=== PATIENT | male | born 1980 | race Caucasian/White ===

== ENCOUNTER 2023-01-24 20:58 | Inpatient (IN) | payer OTHER ==
[2023-01-24] MEDS ORDERED: SODIUM CHLORIDE 0.9% 1,000 ML IV STA (21:06)
[2023-01-24] MEDS ORDERED: SODIUM CHLORIDE 0.9% 500 ML 500 ML IV STA (21:06)
[2023-01-24] MEDS ORDERED: LORazepam 2 MG/ML INJ IV STA (21:06)
--- NOTE | 2023-01-24 21:08 | ED ---
Seizure HPI <Holly Orlando - Last Filed: 01/25/23 04:28> - General Source: EMS, RN notes reviewed, old records reviewed Mode of arrival: EMS Limitations: no limitations - History of Present Illness MD Complaint: seizure, shaking -: minutes(s) Description of Episode: loss of consciousness, tonic-clonic movement -: minutes(s) Witnessed: yes - by bystander, yes - by EMS Trauma: Yes Seizure History: history of withdrawal seizures Place: other ([place]) Possible Precipitating Event: none Associated Symptoms: denies other symptoms Treatments Prior to Arrival: none <Bobby Coleman - Last Filed: 01/25/23 15:02> - General Chief Complaint: Seizure Stated Complaint: Seizure Time Seen by Provider: 01/24/23 21:05 - History of Present Illness Initial Comments: This is a 42-year-old male to the emergency department for evaluation. Patient presents by EMS from [place] for evaluation of seizure. Patient has seizure prior to arrival today history of alcohol withdrawal and alcohol withdrawal seizures. Patient still feels very shaky lightheaded and dizzy does not feel well. Patient is on seizure control at home. (Bobby Coleman) - Related Data Home Medications Medication Instructions Recorded Confirmed LORazepam [Ativan] 1 - 2 mg PO Q4H PRN 01/24/23 01/24/23 Allergies Allergy/AdvReac Type Severity Reaction Status Date / Time No Known Allergies Allergy Verified 01/24/23 22:14 Review of Systems ROS Other: All systems not noted in ROS Statement are negative. <Holly Orlando - Last Filed: 01/25/23 04:28> ROS Other: All systems not noted in ROS Statement are negative. <Bobby Coleman - Last Filed: 01/25/23 15:02> ROS Statement: Those systems with pertinent positive or pertinent negative responses have been documented in the HPI. Past Medical History Past Medical History: Seizure Disorder History of Any Multi-Drug Resistant Organisms: None Reported Past Surgical History: No Surgical Hx Reported Past Psychological History: No Psychological Hx Reported Smoking Status: Current every day smoker Past Alcohol Use History: Heavy Past Drug Use History: None Reported - Past Family History Father Family Medical History: COPD <Bobby Coleman - Last Filed: 01/25/23 15:02> General Exam Limitations: altered mental status, physical limitation General appearance: anxious Head exam: Present: atraumatic, normocephalic, normal inspection Eye exam: Present: normal appearance, PERRL, EOMI. Absent: scleral icterus, conjunctival injection, periorbital swelling ENT exam: Present: normal exam, mucous membranes moist Neck exam: Present: normal inspection. Absent: tenderness, meningismus, lymphadenopathy Respiratory exam: Present: normal lung sounds bilaterally. Absent: respiratory distress, wheezes, rales, rhonchi, stridor Cardiovascular Exam: Present: normal rhythm, tachycardia, normal heart sounds. Absent: systolic murmur, diastolic murmur, rubs, gallop, clicks GI/Abdominal exam: Present: soft, normal bowel sounds. Absent: distended, tenderness, guarding, rebound, rigid Extremities exam: Present: normal inspection, full ROM, normal capillary refill. Absent: tenderness, pedal edema, joint swelling, calf tenderness Back exam: Present: normal inspection Neurological exam: Present: alert, oriented X3, CN II-XII intact Psychiatric exam: Present: normal affect, normal mood Skin exam: Present: warm, dry, intact, normal color. Absent: rash <Bobby Coleman - Last Filed: 01/25/23 15:02> Course <Bobby Coleman - Last Filed: 01/25/23 15:02> Vital Signs 01/24/23 01/24/23 01/25/23 20:59 22:39 02:00 Temperature 99.2 F Pulse Rate 123 H 89 89 Respiratory 18 20 16 Rate Blood Pressure 146/82 128/79 134/67 O2 Sat by Pulse 97 97 99 Oximetry 01/25/23 01/25/23 01/25/23 03:46 06:36 07:21 Temperature Pulse Rate 90 88 74 Respiratory 16 22 20 Rate Blood Pressure 134/77 129/67 123/77 O2 Sat by Pulse 97 98 Oximetry 01/25/23 01/25/23 11:20 13:09 Temperature Pulse Rate 73 105 H Respiratory 20 18 Rate Blood Pressure 131/75 127/77 O2 Sat by Pulse Oximetry - Reevaluation(s) Reevaluation #1: Medical records reviewed (Bobby Coleman) Reevaluation #2: Patient has no recurrent seizure here in the ER (Bobby Coleman) Reevaluation #3: Patient informed results questions answered (Bobby Coleman) Reevaluation #4: 01/24/23 21:08 Was pt. sent in by a medical professional or institution? @ -no Did you speak to anyone other than the patient for history? @ -no Did you review nursing and triage notes? @ -agree Were old charts reviewed? @ -no Differential Diagnosis? @ -prior EKG interpreted by me (3pts min.)? @ -yes X-rays interpreted by me (1pt min.)? @ -no CT interpreted by me (1pt min.)? @ -no U/S interpreted by me (1pt. min.)? @ -no What testing was considered but not performed? (CT, X-rays, U/S, labs)? Why? @ -no What meds were considered but not given? Why? @ -no Did you discuss the management of the patient with other professionals? @ -no Did you reconcile home meds? @ -no Was smoking cessation discussed for >3mins.? @ -no Was critical care preformed (if so, how long)? @ -no Were there social determinants of health that impacted care today? How? (Homelessness, low income, unemployed, alcoholism, drug addiction, transportati on, low edu. Level, literacy, decrease access to med. care, senior care, rehab)? @ -no Was there de-escalation of care discussed even if they declined? (Discuss DNR or withdrawal of care, Hospice)? @ -no What co-morbidities impacted this encounter? (DM, HTN, Smoking, COPD, CAD, Cancer, CVA, Hep., AIDS, mental health diagnosis, sleep apnea, morbid obesity)? @ -none Was patient admitted / discharged? @ -42 male to the emergency department for evaluation regarding seizure, this is recurrent seizure for the patient on seizure medication secondary to alcohol withdrawal seizures. Patient will be admitted for monitoring to watch for impending DTs Discharged Undiagnosed new problem with uncertain prognosis? @ -no Drug Therapy requiring intensive monitoring for toxicity (Heparin, Nitro, Insulin, Cardizem)? @ -no Were any procedures done? @ -no Diagnosis/symptom? @ -Alcohol withdrawal seizures, impending DTs Acute, or Chronic, or Acute on Chronic? @ -no Uncomplicated (without systemic symptoms) or Complicated (systemic symptoms)? @ -uncomplicated Side effects of treatment? @ -no Exacerbation, Progression, or Severe Exacerbation] @ -no Poses a threat to life or bodily function? @ -yes with impending alcohol withdrawal (Bobby Coleman) Reevaluation #5: 01/24/23 21:08 Differential Seizure: Recurrent seizure disorder, febrile seizure, alcohol withdrawal, stimulants, meningitis, encephalitis, intercranial hemorrhage, intracranial tumor, stroke, eclampsia, thyrotoxicosis, hypocalcemia, hyponatremia, hypernatremia, hypom agnesemia, psychogenic, this is not meant to be an all-inclusive list. (Bobby Coleman) - Consultations Consultation #1: Spoke with sound who agrees to admit the patient (Bobby Coleman) Procedures - Laceration Laceration #1 Consent Obtained: verbal consent Indication: laceration Site: other (right elbow) Size (cm): 3 Description: linear Depth: simple, single layer Anesthetic Used: lidocaine 1% Anesthesia Technique: local infiltration Amount (mls): 5 Pre-repair: irrigated extensively Type of Sutures: nylon Size of Sutures: 4-0 Number of Sutures: 3 Technique: simple, interrupted Patient Tolerated Procedure: well, no complications <Holly Orlando - Last Filed: 01/25/23 04:28> Medical Decision Making - Lab Data Result diagrams: 01/24/23 21:07 01/24/23 21:10 <Holly Orlando - Last Filed: 01/25/23 04:28> - Lab Data Result diagrams: 01/25/23 06:03 01/25/23 06:03 - EKG Data -: EKG Interpreted by Me (EKG is tachycardia 114 WA 193 QRS 101 QTC 391) <Bobby Coleman - Last Filed: 01/25/23 15:02> - Medical Decision Making 42 male to the emergency department today with alcohol withdrawal seizure a she will be admitted for impending DTs. No recurrent seizure here in the ER. Patient is not on any seizure medication (Bobby Coleman) - Lab Data Lab Results 01/24/23 01/24/23 01/24/23 Range/Units 21:07 21:10 21:10 WBC 7.2 (3.8-10.6) k/uL RBC 4.40 (4.30-5.90) m/uL Hgb 13.7 (13.0-17.5) gm/dL Hct 42.3 (39.0-53.0) % MCV 96.3 (80.0-100.0) fL MCH 31.3 (25.0-35.0) pg MCHC 32.5 (31.0-37.0) g/dL RDW 14.7 (11.5-15.5) % Plt Count 92 L (150-450) k/uL MPV 9.6 Neutrophils % 76 % Lymphocytes % 14 % Monocytes % 8 % Eosinophils % 1 % Basophils % 0 % Neutrophils # 5.4 (1.3-7.7) k/uL Lymphocytes # 1.0 (1.0-4.8) k/uL Monocytes # 0.5 (0-1.0) k/uL Eosinophils # 0.1 (0-0.7) k/uL Basophils # 0.0 (0-0.2) k/uL Large Platelets Present PT 9.6 (9.0-12.0) sec INR 0.9 (<1.2) Sodium 136 L (137-145) mmol/L Potassium 4.5 (3.5-5.1) mmol/L Chloride 103 (98-107) mmol/L Carbon Dioxide 19 L (22-30) mmol/L Anion Gap 14 mmol/L BUN 11 (9-20) mg/dL Creatinine 0.49 L (0.66-1.25) mg/dL Est GFR (CKD-EPI)AfAm >90 (>60 ml/min/1.73 sqM) Est GFR (CKD-EPI)NonAf >90 (>60 ml/min/1.73 sqM) Glucose 118 H (74-99) mg/dL Calcium 9.3 (8.4-10.2) mg/dL Phosphorus 3.0 (2.5-4.5) mg/dL Magnesium 2.0 (1.6-2.3) mg/dL Total Bilirubin 1.2 (0.2-1.3) mg/dL AST 113 H (17-59) U/L ALT 54 H (4-49) U/L Alkaline Phosphatase 83 (38-126) U/L Total Protein 7.9 (6.3-8.2) g/dL Albumin 4.8 (3.5-5.0) g/dL Lipase 70 (23-300) U/L Serum Alcohol <10 mg/dL Critical Care Time Critical Care Time: Yes Total Critical Care Time: 31 <Bobby Coleman - Last Filed: 01/25/23 15:02> Disposition <Holly Orlando - Last Filed: 01/25/23 04:28> Is patient prescribed a controlled substance at d/c from ED?: No Time of Disposition: 22:45 <Bobby Coleman - Last Filed: 01/25/23 15:02> Clinical Impression: Generalized seizure, Alcohol withdrawal, Delirium tremens, Recurrent seizures, Alcohol abuse Disposition: ADMITTED IP TO THIS HOSP Condition: Serious
[2023-01-24 21:36] LABS: Basophils % (A) 0 %; Eosinophils # (A) 0.1 k/uL (0-0.7); Eosinophils % (A) 1 %; HCT 42.3 % (39.0-53.0); HGB 13.7 gm/dL (13.0-17.5); Lymphocytes % (A) 14 %; MCH 31.3 pg (25.0-35.0); MCHC 32.5 g/dL (31.0-37.0); MCV 96.3 fL (80.0-100.0); Mean Platelet Volume 9.6; Monocytes # (A) 0.5 k/uL (0-1.0); Monocytes % (A) 8 %; Neutrophils # (A) 5.4 k/uL (1.3-7.7); Neutrophils % (A) 76 %; Platelet Count 92 k/uL (150-450); RDW 14.7 % (11.5-15.5); WBC 7.2 k/uL (3.8-10.6)
[2023-01-24 21:43] LABS: INR 0.9 (<1.2); Prothrombin Time 9.6 sec (9.0-12.0)
[2023-01-24 21:51] LABS: ALT 54 U/L (4-49); African American GFR (CKD) >90 (>60 ml/min/1.73 sqM); Albumin 4.8 g/dL (3.5-5.0); Alcohol <10 mg/dL; Anion Gap 14 mmol/L; Blood Urea Nitrogen 11 mg/dL (9-20); Calcium 9.3 mg/dL (8.4-10.2); Carbon Dioxide 19 mmol/L (22-30); Chloride 103 mmol/L (98-107); Glucose 118 mg/dL (74-99); Lipase 70 U/L (23-300); Non-African American GFR(CKD) >90 (>60 ml/min/1.73 sqM); Sodium 136 mmol/L (137-145); Total Protein 7.9 g/dL (6.3-8.2)
[2023-01-24 21:53] LABS: AST 113 U/L (17-59); Alkaline Phosphatase 83 U/L (38-126); Potassium 4.5 mmol/L (3.5-5.1); Total Bilirubin 1.2 mg/dL (0.2-1.3)
[2023-01-24 22:31] LABS: Large Platelets Present
[2023-01-24] MEDS ORDERED: MORPHINE SULFATE 4 MG/ML SYRINGE IV PRN (22:46)
[2023-01-24] MEDS ORDERED: NALOXONE 0.4 MG/ML 1 ML VIAL IV PRN (22:46)
[2023-01-24] MEDS ORDERED: THIAMINE 100 MG/ML 2 ML VIAL IM STA (22:46)
[2023-01-24] MEDS: DEXTROSE 5%-0.45% NACL 1,000 ML IV SCH (23:37)
[2023-01-24] MEDS: LORazepam 2 MG/ML INJ IV PRN (23:37)
[2023-01-24] MEDS: SODIUM CHLORIDE 0.9% 1,000 ML IV SCH (23:42)
--- NOTE | 2023-01-25 00:10 | P.HPIM ---
History of Present Illness H&P Date: 01/24/23 The patient is a 42-year-old male with a PMH of EtOH abuse with history of alcohol withdrawal seizures who presents to the emergency room sent from [place] where the patient had checked it earlier today. Shortly after arrival there, the patient was noted to have 3 grand mal seizures and was subsequently sent to the emergency room. The patient reports that he has a long-standing history of alcohol abuse, has been trying to cut down but continues to drink roughly a 6 pack of beer nightly. States that his last drink was yesterday evening. Does not remember the seizure episodes. Reports feeling shaky at the time of interview. Denies experiencing headache, visual disturbances, nausea, v omiting, diarrhea. Patient reports experiencing right elbow trauma from an accident while at work at his [employer] job yesterday. In the emergency room, EKG revealed sinus tachycardia 114 bpm the urinalysis deviation and an incomplete right bundle branch block with inferior lead Q waves noted. Laboratory evaluation was remarkable for WBC 7.2, platelet count 92, sodium 136, CO2 19, creatinine 0.49, glucose 118, AST 113, ALT 54, serum alcohol level less than 10. ED documentation reviewed and case discussed with ED provider. Review of systems: Pertinent positives and negatives as discussed in HPI, a complete review of systems was performed and all other systems are negative. Physical examination: Vital signs reviewed General: Disheveled male, no distress, appears at stated age, normal weight Derm: Right elbow 4 cm laceration noted, warm Head: atraumatic, normocephalic, symmetric Eyes: EOMI, no lid lag, anicteric sclera, pupils equal round reactive to light ENT: Nose and ears atraumatic Neck: No cervical lymphadenopathy, trachea midline, supple Mouth: no lip lesion, mucus membranes moist Cardiovascular: S1S2 reg, no murmur, positive dorsalis pedis pulse bilateral, no edema Lungs: CTA bilateral, no rhonchi, no rales, no accessory muscle use Abdominal: soft, nontender to palpation, no guarding Ext: muscle strength 5 out of 5 in all 4 extremities grossly, no gross muscle atrophy, no contractures, Neuro: CN II-XI grossly intact, no gross focal neuro deficits, outstretched hand tremor noted Psych: Tremulous, oriented, appropriate affect Assessment: Seizures, suspect secondary to alcohol withdrawal Thrombocytopenia Abnormal LFTs likely due to EtOH abuse Imaging: In the emergency room, EKG revealed sinus tachycardia 114 bpm the urinalysis deviation and an incomplete right bundle branch block with inferior lead Q waves noted. Data Review: Laboratory evaluation was remarkable for WBC 7.2, platelet count 92, sodium 136, CO2 19, creatinine 0.49, glucose 118, AST 113, ALT 54, serum alcohol level less than 10. Plan: CIWA protocol Thiamine, MV IVFs with NS 130 mL/hr Fall precautions DVT prophylaxis: IPCDs The patient is admitted with an anticipated greater than 2 midnight stay for evaluation of seizures CODE STATUS: Full Code Discussed with: Patient Anticipated discharge place: Home Past Medical History Past Medical History: Seizure Disorder History of Any Multi-Drug Resistant Organisms: None Reported Past Surgical History: No Surgical Hx Reported Past Psychological History: No Psychological Hx Reported Smoking Status: Current every day smoker Past Alcohol Use History: Heavy Past Drug Use History: None Reported - Past Family History Father Family Medical History: COPD Medications and Allergies Home Medications Medication Instructions Recorded Confirmed Type LORazepam [Ativan] 1 - 2 mg PO Q4H PRN 01/24/23 01/24/23 History Allergies Allergy/AdvReac Type Severity Reaction Status Date / Time No Known Allergies Allergy Verified 01/24/23 22:14 Physical Exam Vitals: Vital Signs Temp Pulse Resp BP Pulse Ox 01/24/23 22:39 89 20 128/79 97 01/24/23 20:59 99.2 F 123 H 18 146/82 97 Intake and Output 01/24/23 01/24/23 01/25/23 14:59 22:59 06:59 Other: Weight 72.575 kg Results CBC & Chem 7: 01/24/23 21:07 01/24/23 21:10 Labs: Abnormal Lab Results - Last 24 Hours (Table) 01/24/23 01/24/23 Range/Units 21:07 21:10 Plt Count 92 L (150-450) k/uL Sodium 136 L (137-145) mmol/L Carbon Dioxide 19 L (22-30) mmol/L Creatinine 0.49 L (0.66-1.25) mg/dL Glucose 118 H (74-99) mg/dL AST 113 H (17-59) U/L ALT 54 H (4-49) U/L
--- NOTE | 2023-01-25 00:52 | CT ---
EXAM: CT Head Without Intravenous Contrast CLINICAL HISTORY: ITS.REASON CT Reason: s/p 3 seizures TECHNIQUE: Axial computed tomography images of the head/brain without intravenous contrast. CTDI is 45.285 mGy and DLP is 1066.5 mGy-cm. This CT exam was performed using one or more of the following dose reduction techniques: automated exposure control, adjustment of the mA and/or kV according to patient size, and/or use of iterative reconstruction technique. COMPARISON: No previous studies. FINDINGS: Brain: Unremarkable. No hemorrhage. No significant white matter disease. No abnormal extra-axial collection is noted. Midline shift: Midline anatomy is unremarkable. Ventricles: Unremarkable. No ventriculomegaly. Bones/joints: Calvarium is within normal limits. No acute fracture. Soft tissues: Unremarkable. Sinuses: Visualized sinuses are unremarkable. Mastoid air cells: Mastoid air cells are well pneumatized. Other findings: Age-related changes. IMPRESSION: 1. Age-related changes. 2. No acute intracranial pathology. 3. Given the patient's history of seizures, MRI imaging of the brain with contrast administration is advised to follow-up for completeness of seizure workup. EXAM: CT Cervical Spine Without Intravenous Contrast CLINICAL HISTORY: ITS.REASON CT Reason: s/p 3 seizures TECHNIQUE: Axial computed tomography images of the cervical spine without intravenous contrast. CTDI is 11.385 mGy and DLP is 306.4 mGy-cm. This CT exam was performed using one or more of the following dose reduction techniques: automated exposure control, adjustment of the mA and/or kV according to patient size, and/or use of iterative reconstruction technique. COMPARISON: No previous studies. FINDINGS: Vertebrae: Dextroscoliosis. There is straightening and reversal of the curvature of the cervical spine suggestive of muscle spasm. Cervical and visualized thoracic vertebral bodies are maintained in height. There is a normal relationship of C1 and C2. Transaxial images of the cervical spine reveals multilevel posterior facet hypertrophy and disc osteophyte complexes. No acute fracture. Discs/spinal canal/neural foramina: No acute findings. No spinal canal stenosis. Soft tissues: Unremarkable. Lung apices: Minimal scarring at the lung apices. IMPRESSION: No acute injury to the cervical spine is noted.
[2023-01-25] MEDS: LORazepam 2 MG/ML INJ IV PRN ×7 (01:20→18:41)
[2023-01-25] MEDS ORDERED: LIDOCAINE 1% INJ 10MG/ML (30 ML VIAL-PF) SQ ONE (02:53)
[2023-01-25 06:50] LABS: Basophils % (A) 0 %; Eosinophils % (A) 0 %; HCT 40.8 % (39.0-53.0); HGB 13.2 gm/dL (13.0-17.5); Lymphocytes % (A) 12 %; MCH 31.2 pg (25.0-35.0); MCHC 32.3 g/dL (31.0-37.0); MCV 96.7 fL (80.0-100.0); Mean Platelet Volume 9.4; Monocytes # (A) 0.8 k/uL (0-1.0); Monocytes % (A) 9 %; Neutrophils # (A) 6.9 k/uL (1.3-7.7); Neutrophils % (A) 78 %; RBC 4.23 m/uL (4.30-5.90); RDW 14.5 % (11.5-15.5); WBC 8.9 k/uL (3.8-10.6)
[2023-01-25 06:51] LABS: Platelet Count 83 k/uL (150-450)
[2023-01-25] MEDS: SODIUM CHLORIDE 0.9% 1,000 ML IV SCH ×3 (06:51→22:54)
[2023-01-25 07:14] LABS: ALT 49 U/L (4-49); AST 90 U/L (17-59); African American GFR (CKD) >90 (>60 ml/min/1.73 sqM); Albumin 4.2 g/dL (3.5-5.0); Alkaline Phosphatase 61 U/L (38-126); Anion Gap 9 mmol/L; Blood Urea Nitrogen 12 mg/dL (9-20); Calcium 8.7 mg/dL (8.4-10.2); Carbon Dioxide 25 mmol/L (22-30); Chloride 102 mmol/L (98-107); Glucose 127 mg/dL (74-99); Magnesium 2.1 mg/dL (1.6-2.3); Non-African American GFR(CKD) >90 (>60 ml/min/1.73 sqM); Phosphorus 3.6 mg/dL (2.5-4.5); Potassium 3.4 mmol/L (3.5-5.1); Sodium 136 mmol/L (137-145); Total Bilirubin 1.1 mg/dL (0.2-1.3)
[2023-01-25] MEDS: MULTIVITAMINS, THERA 1 EACH TAB PO SCH (08:17)
[2023-01-25] MEDS: THIAMINE 100 MG TAB PO SCH (08:17)
[2023-01-25] MEDS: FOLIC ACID 1 MG TAB PO SCH (08:18)
--- NOTE | 2023-01-25 12:41 | P.PN ---
Subjective Progress Note Date: 01/25/23 No new complaints today. Withdrawal is well controlled. Gen: awake, alert HEENT: normocephalic, atraumatic, good hearing acuity, moist mucous membranes Resp: good air exchange, breathing comfortably with no accessory muscle use CVS: good distal perfusion x 4, GI: soft, NTTP, ND : no SPT, no CVAT, roberts catheter not present MSK: no pitting edema, no clubbing Neuro: non-focal, moving all extremities Psych: cooperative, euthymic mood Hospital course: The patient is a 42-year-old male with a PMH of EtOH abuse with history of alcohol withdrawal seizures who presents to the emergency room sent from [place] where the patient had checked it earlier today. In the emergency room, EKG revealed sinus tachycardia 114 bpm the urinalysis deviation and an incomplete right bundle branch block with inferior lead Q waves noted. Laboratory evaluation was remarkable for WBC 7.2, platelet count 92, sodium 136, CO2 19, creatinine 0.49, glucose 118, AST 113, ALT 54, serum alcohol level less than 10. ED documentation reviewed and case discussed with ED provider. Assessment: Seizures, suspect secondary to alcohol withdrawal Thrombocytopenia Abnormal LFTs likely due to EtOH abuse Plan: Today, patient is afebrile, 131/75, heart rate 73, 93% on room air Ativan 1-2 mg every 1-2 hours when necessary for agitation, restlessness Thiamine, MV, folic acid IVFs with NS 130 mL/hr Fall precautions DVT prophylaxis: IPCDs The patient is admitted with an anticipated greater than 2 midnight stay for e valuation of seizures CODE STATUS: Full Code Discussed with: Patient Anticipated discharge place: Home Objective - Vital Signs Vital signs: Vital Signs Temp 99.2 F 01/24/23 20:59 Pulse 73 01/25/23 11:20 Resp 20 01/25/23 11:20 BP 131/75 01/25/23 11:20 Pulse Ox 98 01/25/23 07:21 FiO2 Intake & Output 01/24/23 01/25/23 01/25/23 18:59 06:59 18:59 Weight 72.575 kg - Labs CBC & Chem 7: 01/25/23 06:03 01/25/23 06:03 Labs: Abnormal Lab Results - Last 24 Hours (Table) 01/24/23 01/24/23 01/25/23 Range/Units 21:07 21:10 06:03 RBC 4.23 L (4.30-5.90) m/uL Plt Count 92 L 83 L (150-450) k/uL Sodium 136 L (137-145) mmol/L Potassium (3.5-5.1) mmol/L Carbon Dioxide 19 L (22-30) mmol/L Creatinine 0.49 L (0.66-1.25) mg/dL Glucose 118 H (74-99) mg/dL AST 113 H (17-59) U/L ALT 54 H (4-49) U/L 01/25/23 Range/Units 06:03 RBC (4.30-5.90) m/uL Plt Count (150-450) k/uL Sodium 136 L (137-145) mmol/L Potassium 3.4 L (3.5-5.1) mmol/L Carbon Dioxide (22-30) mmol/L Creatinine 0.50 L (0.66-1.25) mg/dL Glucose 127 H (74-99) mg/dL AST 90 H (17-59) U/L ALT (4-49) U/L
[2023-01-25] MEDS: NICOTINE 14MG/24HR PATCH TRANSDERM SCH (12:59)
[2023-01-25] MEDS: DEXTROSE 5%-0.45% NACL 1,000 ML IV SCH (13:02)
[2023-01-25 19:23] VITALS: RESP 18
[2023-01-26] MEDS: SODIUM CHLORIDE 0.9% 1,000 ML IV SCH (06:54)
[2023-01-26 08:25] VITALS: BP 122/73; PULSE 69; TEMP 99.4
[2023-01-26] MEDS: FOLIC ACID 1 MG TAB PO SCH (09:50)
[2023-01-26] MEDS: THIAMINE 100 MG TAB PO SCH (09:50)
[2023-01-26] MEDS: NICOTINE 14MG/24HR PATCH TRANSDERM SCH (09:51)
[2023-01-26] MEDS: MULTIVITAMINS, THERA 1 EACH TAB PO SCH (09:51)
--- NOTE | 2023-01-26 10:31 | P.DS ---
Providers Date of admission: 01/24/23 22:47 Expected date of discharge: 01/26/23 Attending physician: Willian Marcelino MD Primary care physician: Physician Nonstaff Hospital Course: Assessment: Seizures, suspect secondary to alcohol withdrawal Thrombocytopenia Abnormal LFTs likely due to EtOH abuse Hospital course: The patient is a 42-year-old male with a PMH of EtOH abuse with history of alcohol withdrawal seizures who presents to the emergency room sent from [place] where the patient had checked it earlier today. In the emergency room, EKG revealed sinus tachycardia 114 bpm the urinalysis deviation and an incomplete right bundle branch block with inferior lead Q waves noted. Laboratory evaluation was remarkable for WBC 7.2, platelet count 92, sodium 136, CO2 19, creatinine 0.49, glucose 118, AST 113, ALT 54, serum alcohol level less than 10. ED documentation reviewed and case discussed with ED provider. Patient was observed for alcohol withdrawal, provide Ativan as needed. By day of discharge, he did not require Ativan for 24 hours. On day of discharge, had a conversation with the patient regarding alcohol cessation plan, he appeared very motivated to quit, has had multiple successful times in the past. He has a plan to return home with attendants to alcoholics anonymous. He is amenable to trialing naltrexone to help with his alcohol cessation. He was provided 3 days of Librium for anxiety associated with alcohol withdrawal, and instructed very carefully not to consume any alcohol in conjunction with Librium. He will follow-up with his primary care doctor as well. I spent 38 minutes coordinating this discharge on 01/26 Gen: awake, alert HEENT: normocephalic, atraumatic, good hearing acuity, moist mucous membranes Resp: good air exchange, breathing comfortably with no accessory muscle use CVS: good distal perfusion x 4, GI: soft, NTTP, ND : no SPT, no CVAT, roberts catheter not present MSK: no pitting edema, no clubbing Neuro: non-focal, moving all extremities Psych: cooperative, euthymic mood Patient Condition at Discharge: Good Plan - Discharge Summary New Discharge Prescriptions: New chlordiazePOXIDE HCl [Librium] 10 mg PO TID 3 Days #9 capsule Naltrexone HCl [Revia] 50 mg PO DAILY #30 tablet Folic Acid 1 mg PO DAILY #30 tab Multivitamins, Thera [Multivitamin (formulary)] 1 each PO DAILY #30 tab Thiamine [Vitamin B-1] 100 mg PO DAILY #30 tab Discontinued LORazepam [Ativan] 1 - 2 mg PO Q4H PRN PRN Reason: WITHDRAWL SYMPTOMS Discharge Medication List Folic Acid 1 mg PO DAILY #30 tab 01/26/23 [Rx] Multivitamins, Thera [Multivitamin (formulary)] 1 each PO DAILY #30 tab 01/26/23 [Rx] Naltrexone HCl [Revia] 50 mg PO DAILY #30 tablet 01/26/23 [Rx] Thiamine [Vitamin B-1] 100 mg PO DAILY #30 tab 01/26/23 [Rx] chlordiazePOXIDE HCl [Librium] 10 mg PO TID 3 Days #9 capsule 01/26/23 [Rx] Follow up Appointment(s)/Referral(s): Nonstaff,Physician [Primary Care Provider] - 1-2 days Patient Instructions/Handouts: Seizure/Epilepsy Discharge Instructions & Follow-Up, Chlordiazepoxide (By mouth), Thiamine (By mouth), Folic Acid (By mouth), Multivitamins, Adult Formula (By mouth), Naltrexone (By mouth) Discharge Disposition: HOME SELF-CARE
== END 2023-01-26 12:30 | disposition home or self-care (01) | DRG 775 ==
LOC: EC 20:58 → 5NMEDONC 22:47
PROVIDERS: ADMIT Internal Medicine; ATTEND Internal Medicine
PROC: 0XQBXZZ Repair Right Elbow Region, External Approach (ICD-10-PCS; principal; 2023-01-24)
DX: F10.239 Alcohol dependence with withdrawal, unspecified (principal); G40.409 Other generalized epilepsy and epileptic syndromes, not intractable, without status epilepticus; F10.280 Alcohol dependence with alcohol-induced anxiety disorder; S51.011A Laceration without foreign body of right elbow, initial encounter; I45.10 Unspecified right bundle-branch block; D69.6 Thrombocytopenia, unspecified; R79.89 Other specified abnormal findings of blood chemistry; Z28.310 Unvaccinated for COVID-19; Y90.0 Blood alcohol level of less than 20 mg/100 ml; F17.200 Nicotine dependence, unspecified, uncomplicated; Y93.H2 Activity, gardening and landscaping; Y92.096 Garden or yard of other non-institutional residence as the place of occurrence of the external cause; Y99.0 Civilian activity done for income or pay; Z71.41 Alcohol abuse counseling and surveillance of alcoholic
CPT/HCPCS: 12002; 36415; 70450; 72125; 80053; 80320; 83690; 83735; 84100; 84484; 85025; 85610; 93005; 96361; 96372; 96374; 96376; 99291

== ENCOUNTER 2023-02-05 14:56 | Inpatient (IN) | payer OTHER ==
[2023-02-05] MEDS ORDERED: ALBUTEROL NEBULIZED 2.5 MG/3 ML INHALATION STA (16:35)
--- NOTE | 2023-02-05 16:56 | ED ---
General Adult HPI - General Chief complaint: Shortness of Breath Stated complaint: SOB Time Seen by Provider: 02/05/23 15:55 Source: patient Mode of arrival: EMS Limitations: no limitations - History of Present Illness Initial comments: This patient is a 42-year-old man transferred here from [facility]. He arrives with complaint of having cough that is been going on for "a couple of days." He notes there is some whitish sputum. He has a little bit of burning substernal pain with the cough. He otherwise has no chest pain. He has a little bit of shortness of breath. He states that yesterday they gave him a breathing treatment there which seemed to make him cough a little more. -: days(s) Location: chest Consistency: constant Improves with: none Worsens with: none Associated Symptoms: cough, shortness of breath - Related Data Home Medications Medication Instructions Recorded Confirmed Acetaminophen [Tylenol] 650 mg PO Q4H PRN 02/05/23 02/05/23 Albuterol Nebulized [Ventolin 2.5 mg INHALATION RT-Q6H PRN 02/05/23 02/05/23 Nebulized] Calcium/Magnesium/Zinc With 1 tab PO TID PRN 02/05/23 02/05/23 Vitamin D 334/134/5mg Hyoscyamine Sulfate [Levsin] 0.125 mg PO QID PRN 02/05/23 02/05/23 Ibuprofen [Motrin] 600 mg PO Q6H PRN 02/05/23 02/05/23 Mag Hydrox/Aluminum Hyd/Simeth 30 ml PO Q4H PRN 02/05/23 02/05/23 [Mylanta Maximum Strength Liq] Mirtazapine [Remeron] 15 mg PO HS 02/05/23 02/05/23 Multivitamins, Thera [Multivitamin 1 tab PO DAILY 02/05/23 02/05/23 (formulary)] Previous Rx's Medication Instructions Recorded Folic Acid 1 mg PO DAILY #30 tab 01/26/23 Thiamine [Vitamin B-1] 100 mg PO DAILY #30 tab 01/26/23 Albuterol Inhaler [Ventolin Hfa 1 puff INHALATION Q6H PRN #1 each 02/09/23 Inhaler] Disulfiram [Antabuse] 250 mg PO DAILY #30 tablet 02/09/23 Levofloxacin [Levaquin] 750 mg PO DAILY 2 Days #2 tab 02/09/23 Allergies Allergy/AdvReac Type Severity Reaction Status Date / Time No Known Allergies Allergy Verified 02/05/23 17:21 Review of Systems ROS Statement: Those systems with pertinent positive or pertinent negative responses have been documented in the HPI. ROS Other: All systems not noted in ROS Statement are negative. Constitutional: Reports: fever. Denies: chills Respiratory: Reports: cough, dyspnea Cardiovascular: Reports: chest pain. Denies: palpitations, orthopnea, edema, syncope Gastrointestinal: Denies: abdominal pain, vomiting, diarrhea Genitourinary: Denies: dysuria, hematuria Musculoskeletal: Denies: back pain Skin: Denies: rash Neurological: Denies: headache, weakness Past Medical History Past Medical History: Seizure Disorder History of Any Multi-Drug Resistant Organisms: None Reported Past Surgical History: No Surgical Hx Reported Past Psychological History: No Psychological Hx Reported Smoking Status: Current every day smoker Past Alcohol Use History: Heavy Past Drug Use History: None Reported - Past Family History Father Family Medical History: COPD General Exam Limitations: no limitations General appearance: alert, in no apparent distress Head exam: Present: atraumatic, normocephalic Eye exam: Present: normal appearance. Absent: scleral icterus, conjunctival injection Neck exam: Present: normal inspection Respiratory exam: Present: wheezes, rhonchi. Absent: respiratory distress, ra les, stridor, chest wall tenderness, accessory muscle use Cardiovascular Exam: Present: regular rate, normal rhythm, normal heart sounds. Absent: systolic murmur, diastolic murmur, rubs, gallop GI/Abdominal exam: Present: soft. Absent: distended, tenderness, guarding, rebound, rigid, mass Extremities exam: Present: normal inspection, normal capillary refill. Absent: pedal edema, calf tenderness Back exam: Present: normal inspection. Absent: CVA tenderness (R), CVA tenderness (L) Neurological exam: Present: alert Skin exam: Present: warm, dry, intact, normal color. Absent: rash Course Vital Signs 02/05/23 02/05/23 02/05/23 15:37 17:29 17:38 Temperature 103 F H Pulse Rate 98 92 94 Respiratory 20 Rate Blood Pressure 122/67 O2 Sat by Pulse 96 Oximetry 02/05/23 02/05/23 20:02 22:10 Temperature 102.6 F H Pulse Rate 98 Respiratory 18 Rate Blood Pressure 112/62 O2 Sat by Pulse 96 Oximetry Medical Decision Making - Medical Decision Making This patient is a 42-year-old man here from [facility]. He is sent here to have evaluation of fever and cough. The clinical impression is of pneumonia. The patient has chest x-ray which I interpreted to show diffuse in filtrates consistent with atypical pneumonia. Given the patient's social situation, and the fact that in ambulating, he his pulse oximetry did decrease. He'll be admitted to start treatment and ensure that there is some progress. Was pt. sent in by a medical professional or institution (, PA, ESCROW CLERK, urgent care, hospital, or [facility]...) When possible be specific @ -Sent in by [facility] Did you speak to anyone other than the patient for history (EMS, parent, family, police, friend...)? What history was obtained from this source @ -[No] Did you review nursing and triage notes (agree or disagree)? Why? @ -[I reviewed and agree with nursing and triage notes] Were old charts reviewed (outside hosp., previous admission, EMS record, old EKG, old radiological studies, urgent care reports/EKG's, [facility] records)? Report findings @ -[Transfer charts were reviewed] Differential Diagnosis (chest pain, altered mental status, abdominal pain women, abdominal pain men, vaginal bleeding, weakness, fever, dyspnea, syncope, headache, dizziness, GI bleed, back pain, seizure, CVA, palpatations, mental health, musculoskeletal)? @ -[Differential Fever: Pneumonia, viral URI, endocarditis, myocarditis, pericarditis, otitis, sinusitis, peritonsillar Abscess, retropharyngeal Abscess, epiglottitis, peritonitis, appendicitis, Elizabeth cystitis, diverticulitis, hepatitis, colitis, UTI, PID, TOA, pyelonephritis, prostatitis, epididymitis, meningitis, encephalitis, pulmonary embolism, CVA, thyroid storm, pancreatitis, adrenal crisis, cavernous sinus thrombosis, this is not meant to be an all-inclusive list. EKG interpreted by me (3pts min.). @ -[ X-rays interpreted by me (1pt min.). @ -[ CT interpreted by me (1pt min.). @ -[None done] U/S interpreted by me (1pt. min.). @ -[None done] What testing was considered but not performed or refused? (CT, X-rays, U/S, labs)? Why? @ -[None] What meds were considered but not given or refused? Why? @ -[None] Did you discuss the management of the patient with other professionals (professionals i.e. , PA, ESCROW CLERK, lab, RT, psych nurse, social insurance analyst, qa tech, teacher, safety officer, patient case manager)? Give summary @ -[Case discussed with admitting physician Was smoking cessation discussed for >3mins.? @ -[No] Was critical care preformed (if so, how long)? @ -[No] Were there social determinants of health that impacted care today? How? (Homelessness, low income, unemployed, alcoholism, drug addiction, transportation, low edu. Level, literacy, decrease access to med. care, care home, rehab)? @ -[Alcoholism Was there de-escalation of care discussed even if they declined (Discuss DNR or withdrawal of care, Hospice)? DNR status @ -[No] What co-morbidities impacted this encounter? (DM, HTN, Smoking, COPD, CAD, Cancer, CVA, ARF, Chemo, Hep., AIDS, mental health diagnosis, sleep apnea, morbid obesity)? @ -[None] Was patient admitted / discharged? Hospital course, mention meds given and route, prescriptions, significant lab abnormalities, going to OR and other pertinent info. @ -[Patient is admitted to start antibiotic coverage and ensure that there is some improvement related to his pneumonia Undiagnosed new problem with uncertain prognosis? @ -[No] Drug Therapy requiring intensive monitoring for toxicity (Heparin, Nitro, Insulin, Cardizem)? @ -[No] Were any procedures done? @ -[No] Diagnosis/symptom? @ -[Acute atypical pneumonia Acute, or Chronic, or Acute on Chronic? @ -[default] Uncomplicated (without systemic symptoms) or Complicated (systemic symptoms)? @ -[Uncomplicated Side effects of treatment? @ -[No] Exacerbation, Progression, or Severe Exacerbation? @ -[No] Poses a threat to life or bodily function? How? (Chest pain, [place], [place], pneumonia, PE, COPD, DKA, ARF, appy, cholecystitis, CVA, Diverticulitis, Homicidal, Suicidal, threat to staff... and all critical care pts) @ -[Yes, untreated pneumonia may progress to respiratory failure and/or sepsis and . - Lab Data Result diagrams: 02/05/23 17:15 02/05/23 17:15 Lab Results 02/05/23 02/05/23 02/05/23 Range/Units 16:00 17:15 17:15 WBC 13.8 H (3.8-10.6) k/uL RBC 3.95 L (4.30-5.90) m/uL Hgb 12.5 L (13.0-17.5) gm/dL Hct 37.8 L (39.0-53.0) % MCV 95.8 (80.0-100.0) fL MCH 31.7 (25.0-35.0) pg MCHC 33.1 (31.0-37.0) g/dL RDW 13.6 (11.5-15.5) % Plt Count 291 D (150-450) k/uL MPV 8.6 Neutrophils % 79 % Lymphocytes % 12 % Monocytes % 5 % Eosinophils % 3 % Basophils % 0 % Neutrophils # 10.8 H (1.3-7.7) k/uL Lymphocytes # 1.7 (1.0-4.8) k/uL Monocytes # 0.7 (0-1.0) k/uL Eosinophils # 0.4 (0-0.7) k/uL Basophils # 0.0 (0-0.2) k/uL Sodium 134 L (137-145) mmol/L Potassium 3.8 (3.5-5.1) mmol/L Chloride 99 (98-107) mmol/L Carbon Dioxide 24 (22-30) mmol/L Anion Gap 11 mmol/L BUN 15 (9-20) mg/dL Creatinine 0.52 L (0.66-1.25) mg/dL Est GFR (CKD-EPI)AfAm >90 (>60 ml/min/1.73 sqM) Est GFR (CKD-EPI)NonAf >90 (>60 ml/min/1.73 sqM) Glucose 106 H (74-99) mg/dL Plasma Lactic Acid Sb (0.7-2.0) mmol/L Calcium 8.5 (8.4-10.2) mg/dL Total Bilirubin 0.4 (0.2-1.3) mg/dL AST 58 (17-59) U/L ALT 34 (4-49) U/L Alkaline Phosphatase 69 (38-126) U/L C-Reactive Protein 13.4 H (<1.0) mg/dL Total Protein 6.3 (6.3-8.2) g/dL Albumin 3.2 L (3.5-5.0) g/dL Procalcitonin (0.02-0.09) ng/mL Influenza Type A (PCR) Not Detected (Not Detectd) Influenza Type B (PCR) Not Detected (Not Detectd) RSV (PCR) Not Detected (Not Detectd) SARS-CoV-2 (PCR) Not Detected (Not Detectd) 02/05/23 02/05/23 Range/Units 17:15 20:00 WBC (3.8-10.6) k/uL RBC (4.30-5.90) m/uL Hgb (13.0-17.5) gm/dL Hct (39.0-53.0) % MCV (80.0-100.0) fL MCH (25.0-35.0) pg MCHC (31.0-37.0) g/dL RDW (11.5-15.5) % Plt Count (150-450) k/uL MPV Neutrophils % % Lymphocytes % % Monocytes % % Eosinophils % % Basophils % % Neutrophils # (1.3-7.7) k/uL Lymphocytes # (1.0-4.8) k/uL Monocytes # (0-1.0) k/uL Eosinophils # (0-0.7) k/uL Basophils # (0-0.2) k/uL Sodium (137-145) mmol/L Potassium (3.5-5.1) mmol/L Chloride (98-107) mmol/L Carbon Dioxide (22-30) mmol/L Anion Gap mmol/L BUN (9-20) mg/dL Creatinine (0.66-1.25) mg/dL Est GFR (CKD-EPI)AfAm (>60 ml/min/1.73 sqM) Est GFR (CKD-EPI)NonAf (>60 ml/min/1.73 sqM) Glucose (74-99) mg/dL Plasma Lactic Acid Sb 1.1 (0.7-2.0) mmol/L Calcium (8.4-10.2) mg/dL Total Bilirubin (0.2-1.3) mg/dL AST (17-59) U/L ALT (4-49) U/L Alkaline Phosphatase (38-126) U/L C-Reactive Protein (<1.0) mg/dL Total Protein (6.3-8.2) g/dL Albumin (3.5-5.0) g/dL Procalcitonin 1.28 H (0.02-0.09) ng/mL Influenza Type A (PCR) (Not Detectd) Influenza Type B (PCR) (Not Detectd) RSV (PCR) (Not Detectd) SARS-CoV-2 (PCR) (Not Detectd) Disposition Clinical Impression: Pneumonia Disposition: ADMITTED IP TO THIS HOSP Condition: Undetermined
--- NOTE | 2023-02-05 17:15 | XR ---
EXAMINATION TYPE: XR chest 2V DATE OF EXAM: 02/05/2023 5:08 PM COMPARISON: None TECHNIQUE: XR chest 2V Frontal and lateral views of the chest. CLINICAL INDICATION:Male, 42 years old with history of cough/chest pain; FINDINGS: Lungs/Pleura: Increased interstitial opacities bilaterally. There is no evidence of pleural effusion, focal consolidation, or pneumothorax. Pulmonary vascularity: Unremarkable. Heart/mediastinum: Cardiomediastinal silhouette is unremarkable. Musculoskeletal: No acute osseous pathology. IMPRESSION: Bilateral reticular opacities throughout the lungs concerning for atypical pneumonia versus interstit ial edema.
[2023-02-05 17:35] LABS: Basophils % (A) 0 %; Eosinophils # (A) 0.4 k/uL (0-0.7); Eosinophils % (A) 3 %; HCT 37.8 % (39.0-53.0); HGB 12.5 gm/dL (13.0-17.5); Lymphocytes # (A) 1.7 k/uL (1.0-4.8); Lymphocytes % (A) 12 %; MCH 31.7 pg (25.0-35.0); MCHC 33.1 g/dL (31.0-37.0); MCV 95.8 fL (80.0-100.0); Mean Platelet Volume 8.6; Monocytes # (A) 0.7 k/uL (0-1.0); Monocytes % (A) 5 %; Neutrophils # (A) 10.8 k/uL (1.3-7.7); Neutrophils % (A) 79 %; RBC 3.95 m/uL (4.30-5.90); RDW 13.6 % (11.5-15.5); WBC 13.8 k/uL (3.8-10.6)
[2023-02-05 17:45] LABS: ALT 34 U/L (4-49); AST 58 U/L (17-59); African American GFR (CKD) >90 (>60 ml/min/1.73 sqM); Albumin 3.2 g/dL (3.5-5.0); Alkaline Phosphatase 69 U/L (38-126); Anion Gap 11 mmol/L; Blood Urea Nitrogen 15 mg/dL (9-20); Calcium 8.5 mg/dL (8.4-10.2); Carbon Dioxide 24 mmol/L (22-30); Chloride 99 mmol/L (98-107); Glucose 106 mg/dL (74-99); Non-African American GFR(CKD) >90 (>60 ml/min/1.73 sqM); Potassium 3.8 mmol/L (3.5-5.1); Sodium 134 mmol/L (137-145); Total Bilirubin 0.4 mg/dL (0.2-1.3); Total Protein 6.3 g/dL (6.3-8.2)
[2023-02-05 17:57] LABS: C Reactive Protein 13.4 mg/dL (<1.0)
[2023-02-05 18:09] LABS: Platelet Count 291 k/uL (150-450)
[2023-02-05] MEDS ORDERED: ALBUTEROL NEBULIZED 2.5 MG/3 ML INHALATION PRN (20:27)
[2023-02-05] MEDS ORDERED: PNEUMONIA PROTOCOL UTILIZED 1 EACH MISC PO PRN (20:27)
[2023-02-05] MEDS: SODIUM CHLORIDE 0.9% 1,000 ML IV SCH (22:14)
[2023-02-05] MEDS ORDERED: ACETAMINOPHEN TAB 325 MG TAB PO STA (22:23)
[2023-02-06] MEDS ORDERED: LORazepam 1 MG TAB PO PRN ×3 (00:10)
[2023-02-06] MEDS ORDERED: LORazepam 0.5 MG TAB PO PRN (00:10)
[2023-02-06] MEDS ORDERED: THIAMINE 100 MG/ML 2 ML VIAL IM STA (00:10)
--- NOTE | 2023-02-06 00:10 | P.HPIM ---
History of Present Illness H&P Date: 02/05/23 The patient is a 42-year-old male with a PMH of EtOH abuse who presents to the emergency room with complaints of shortness of breath and cough. The patient reports that his symptoms started 2-3 days ago with gradually worsening dyspnea on exertion as well as cough productive of whitish phlegm. The patient is currently at [place] with history of alcohol abuse. He also reports subjective fevers chills. Denies chest pain, nausea, vomiting, diaphoresis. Chest x-ray in the emergency room revealed bilateral opacities consistent with atypical pneumonia. Vital signs upon arrival at the emergency room were emperature 100.3F, BP 122/67, pulse 98, respiratory rate 20, and SpO2 96% on room air. Laboratory evaluation was remarkable for leukocytosis at 13.8, hemoglobin 12.5, sodium 134, lactic acid 1.1. Coronavirus, RSV, and influenza testing was negative. ED documentation reviewed and case discussed with ED provider. Review of systems: Pertinent positives and negatives as discussed in HPI, a complete review of systems was performed and all other systems are negative. Physical examination: Vital signs reviewed General: Foul-smelling disheveled male, no distress, appears at stated age, normal weight Derm: no unusual rashes/lesions, warm Head: atraumatic, normocephalic, symmetric Eyes: EOMI, no lid lag, anicteric sclera, pupils equal round reactive to light ENT: Nose and ears atraumatic Neck: No cervical lymphadenopathy, trachea midline, supple Mouth: no lip lesion, mucus membranes moist Cardiovascular: S1S2 reg, no murmur, positive dorsalis pedis pulse bilateral, no edema Lungs: Scattered rhonchi without wheezing, no accessory muscle use Abdominal: soft, nontender to palpation, no guarding Ext: muscle strength 5 out of 5 in all 4 extremities grossly, no gross muscle atrophy, no contractures, Neuro: CN II-XI grossly intact, no gross focal neuro deficits Psych: Alert, oriented, appropriate affect Assessment: Sepsis secondary to community acquired pneumonia Alcohol abuse Imaging: Chest x-ray in the emergency room revealed bilateral opacities consistent with atypical pneumonia. Data Review: Vital signs upon arrival at the emergency room were temperature 100.3F, BP 122/67, pulse 98, respiratory rate 20, and SpO2 96% on room air. Laboratory evaluation was remarkable for leukocytosis at 13.8, hemoglobin 12.5, sodium 134, lactic acid 1.1. Coronavirus, RSV, and influenza testing was negative. Plan: Start patient on ceftriaxone and azithromycin Follow-up blood and sputum cultures Follow-up legionella antigen and culture Continue with IV fluid with normal saline 125 mL per hour CIWA protocol with Ativan prn DVT prophylaxis: Heparin subq The patient is admitted with an anticipated greater than 2 midnight stay for evaluation of pneumonia CODE STATUS: Full Code Discussed with: Patient Anticipated discharge place: [place] Past Medical History Past Medical History: Seizure Disorder Additional Past Medical History / Comment(s): seizures r/t detox. History of Any Multi-Drug Resistant Organisms: None Reported Past Surgical History: No Surgical Hx Reported Past Psychological History: No Psychological Hx Reported Smoking Status: Current every day smoker Past Alcohol Use History: Heavy Past Drug Use History: None Reported - Past Family History Father Family Medical History: COPD Medications and Allergies Home Medications Medication Instructions Recorded Confirmed Type Folic Acid 1 mg PO DAILY #30 tab 01/26/23 02/05/23 Rx Thiamine [Vitamin B-1] 100 mg PO DAILY #30 tab 01/26/23 02/05/23 Rx Acetaminophen [Tylenol] 650 mg PO Q4H PRN 02/05/23 02/05/23 History Albuterol Nebulized [Ventolin 2.5 mg INHALATION RT-Q6H PRN 02/05/23 02/05/23 History Nebulized] Calcium/Magnesium/Zinc With 1 tab PO TID PRN 02/05/23 02/05/23 History Vitamin D 334/134/5mg Chlorpheniramine Maleate 4 mg PO Q4H PRN 02/05/23 02/05/23 History [Chlor-Trimeton] Hyoscyamine Sulfate [Levsin] 0.125 mg PO QID PRN 02/05/23 02/05/23 History Ibuprofen [Motrin] 600 mg PO Q6H PRN 02/05/23 02/05/23 History Loperamide HCl [Imodium A-D] 2 - 4 mg PO QID PRN 02/05/23 02/05/23 History Mag Hydrox/Aluminum Hyd/Simeth 30 ml PO Q4H PRN 02/05/23 02/05/23 History [Mylanta Maximum Strength Liq] Mirtazapine [Remeron] 15 mg PO HS 02/05/23 02/05/23 History Multivitamins, Thera [Multivitamin 1 tab PO DAILY 02/05/23 02/05/23 History (formulary)] ondansetron HCL [Zofran] 8 mg PO Q6H PRN 02/05/23 02/05/23 History Allergies Allergy/AdvReac Type Severity Reaction Status Date / Time No Known Allergies Allergy Verified 02/05/23 17:21 Physical Exam Vitals: Vital Signs Temp Pulse Resp BP Pulse Ox 02/05/23 22:10 102.6 F H 02/05/23 20:02 98 18 112/62 96 02/05/23 17:38 94 02/05/23 17:29 92 02/05/23 15:37 103 F H 98 20 122/67 96 Intake and Output 02/05/23 02/05/23 02/06/23 14:59 22:59 06:59 Other: Weight 72.575 kg 72.575 kg Results CBC & Chem 7: 02/05/23 17:15 02/05/23 17:15 Labs: Abnormal Lab Results - Last 24 Hours (Table) 02/05/23 02/05/23 Range/Units 17:15 17:15 WBC 13.8 H (3.8-10.6) k/uL RBC 3.95 L (4.30-5.90) m/uL Hgb 12.5 L (13.0-17.5) gm/dL Hct 37.8 L (39.0-53.0) % Neutrophils # 10.8 H (1.3-7.7) k/uL Sodium 134 L (137-145) mmol/L Creatinine 0.52 L (0.66-1.25) mg/dL Glucose 106 H (74-99) mg/dL C-Reactive Protein 13.4 H (<1.0) mg/dL Albumin 3.2 L (3.5-5.0) g/dL Thrombosis Risk Factor Assmnt - Choose All That Apply Any of the Below Risk Factors Present?: Yes Each Factor Represents 1 point: Age 41-60 years Thrombosis Risk Factor Assessment Total Risk Factor Score: 1 Thrombosis Risk Factor Assessment Level: Low Risk
[2023-02-06] MEDS: MIRTAZAPINE 15 MG TAB PO SCH ×2 (00:41→22:49)
[2023-02-06] MEDS: AZITHROMYCIN 500 MG TAB PO SCH ×2 (00:41→08:18)
[2023-02-06] MEDS ORDERED: NICOTINE 14MG/24HR PATCH TRANSDERM STA (00:49)
[2023-02-06] MEDS: SODIUM CHLORIDE 0.9% 1,000 ML IV SCH ×3 (04:50→21:09)
[2023-02-06] MEDS: IPRATROPIUM-ALBUTEROL 3 ML NEB INHALATION SCH ×4 (07:58→21:17)
[2023-02-06] MEDS: HEPARIN SODIUM,PORCINE/PF 5,000 UNIT/0.5 ML SYRINGE SQ SCH ×3 (08:18→22:49)
[2023-02-06] MEDS: MULTIVITAMINS, THERA 1 EACH TAB PO SCH (08:18)
[2023-02-06] MEDS: FOLIC ACID 1 MG TAB PO SCH (08:18)
--- NOTE | 2023-02-06 08:49 | XR ---
EXAMINATION TYPE: XR chest 2V DATE OF EXAM: 02/06/2023 COMPARISON: 02/05/2023 TECHNIQUE: PA and lateral views submitted. HISTORY: Cough FINDINGS: Patchy bilateral perihilar infiltrates are stable. No pleural effusion or pneumothorax. Heart size no rmal. Hyperinflation suggest asthma or COPD. Prominence of the hilum may represent prominent pulmonar y arteries are mild adenopathy. Recommend follow up CT chest. IMPRESSION: 1. Patchy bilateral infiltrates are suspicious for pneumonia including atypical pneumonia correlate c sameer.
--- NOTE | 2023-02-06 13:41 | P.PN ---
Subjective Progress Note Date: 02/06/23 The patient is a 42-year-old male with a PMH of EtOH abuse who presents to the emergency room with complaints of shortness of breath and cough. The patient reports that his symptoms started 2-3 days ago with gradually worsening dyspnea on exertion as well as cough productive of whitish phlegm. The patient is currently at [place] with history of alcohol abuse. Chest x-ray in the emergency room revealed bilateral opacities consistent with atypical pneumonia. Vital signs upon arrival at the emergency room were emperature 100.3F, BP 122/67, pulse 98, respiratory rate 20, and SpO2 96% on room air. Laboratory evaluation was remarkable for leukocytosis at 13.8, hemoglobin 12.5, sodium 134, lactic acid 1.1. Coronavirus, RSV, and influenza testing was negative. Patient started on Rocephin and azithromycin and admitted for sepsis related to community-acquired pneumonia. Patient was seen and examined. No acute events overnight. Patient continues to report cough and shortness of breath with exertion. He has been at [place] for the past 7 days. General: non toxic, no distress, appears at stated age Derm: warm, dry Head: atraumatic, normocephalic, symmetric Eyes: EOMI, no lid lag, anicteric sclera Cardiovascular: S1S2 reg, no murmur Lungs: CTA bilateral, no rhonchi, no rales , no accessory muscle use Ext: no gross muscle atrophy, no edema, no contractures Neuro: no focal neuro deficits Psych: Alert, oriented, appropriate affect Acute hypoxic respiratory failure Sepsis secondary to community acquired pneumonia Alcohol abuse Based on my assessment of this patient, this patient meets a high complexity level of care. Patient has an acute diagnosis of acute hypoxic respiratory failure secondary to community-acquired pneumonia that poses a threat to life or bodily function. He meets sepsis criteria with fever, tachycardia, leukocytosis and positive source of infection. Continue Rocephin 2 g IV daily, azithromycin 500 mg by mouth daily. Sputum culture ordered. Legionella antigen pending. Telemetry monitoring. He is pending clinical improvement. I have reviewed the following consultant dietitian notes: I have reviewed the results of the following tests: Lactic acid is 1.1. I have ordered the following tests: I have discussed the care of this patient with the following independent historian: I have independently interpreted the following test below: CXR shows persistent bilateral infiltrates. I have discussed the management of this patient with the following physician: Objective - Vital Signs Vital signs: Vital Signs Temp 99.3 F 02/06/23 07:27 Pulse 90 02/06/23 12:05 Resp 17 02/06/23 07:27 BP 110/67 02/06/23 07:27 Pulse Ox 95 02/06/23 07:59 FiO2 Intake & Output 02/05/23 02/06/23 02/06/23 18:59 06:59 18:59 Intake Total 250 270 Output Total 250 Balance 0 270 Weight 72.575 kg 72.575 kg Intake: Oral 250 270 Output: Urine 250 Other: Voiding Method Urinal # Voids 1 - Labs CBC & Chem 7: 02/05/23 17:15 02/05/23 17:15 Labs: Abnormal Lab Results - Last 24 Hours (Table) 02/05/23 02/05/23 02/05/23 Range/Units 17:15 17:15 17:15 WBC 13.8 H (3.8-10.6) k/uL RBC 3.95 L (4.30-5.90) m/uL Hgb 12.5 L (13.0-17.5) gm/dL Hct 37.8 L (39.0-53.0) % Neutrophils # 10.8 H (1.3-7.7) k/uL Sodium 134 L (137-145) mmol/L Creatinine 0.52 L (0.66-1.25) mg/dL Glucose 106 H (74-99) mg/dL C-Reactive Protein 13.4 H (<1.0) mg/dL Albumin 3.2 L (3.5-5.0) g/dL Procalcitonin 1.28 H (0.02-0.09) ng/mL
[2023-02-06] MEDS: ACETAMINOPHEN TAB 325 MG TAB PO PRN (16:31)
[2023-02-07] MEDS: SODIUM CHLORIDE 0.9% 1,000 ML IV SCH (05:31)
[2023-02-07] MEDS: THIAMINE 100 MG TAB PO SCH (07:41)
[2023-02-07] MEDS: HEPARIN SODIUM,PORCINE/PF 5,000 UNIT/0.5 ML SYRINGE SQ SCH ×2 (07:41→16:14)
[2023-02-07] MEDS: MULTIVITAMINS, THERA 1 EACH TAB PO SCH (07:41)
[2023-02-07] MEDS: AZITHROMYCIN 500 MG TAB PO SCH (07:41)
[2023-02-07] MEDS: FOLIC ACID 1 MG TAB PO SCH (07:42)
[2023-02-07] MEDS: IPRATROPIUM-ALBUTEROL 3 ML NEB INHALATION SCH ×4 (07:57→20:37)
[2023-02-07] MEDS: ACETAMINOPHEN TAB 325 MG TAB PO PRN (10:58)
--- NOTE | 2023-02-07 15:46 | P.PN ---
Subjective Progress Note Date: 02/07/23 The patient is a 42-year-old male with a PMH of EtOH abuse who presents to the emergency room with complaints of shortness of breath and cough. The patient reports that his symptoms started 2-3 days ago with gradually worsening dyspnea on exertion as well as cough productive of whitish phlegm. The patient is currently at [facility] with history of alcohol abuse. Chest x-ray in the emergency room revealed bilateral opacities consistent with atypical pneumonia. Vital signs upon arrival at the emergency room were emperature 100.3F, BP 122/67, pulse 98, respiratory rate 20, and SpO2 96% on room air. Laboratory evaluation was remarkable for leukocytosis at 13.8, hemoglobin 12.5, sodium 134, lactic acid 1.1. Coronavirus, RSV, and influenza testing was negative. Patient started on Rocephin and azithromycin and admitted for sepsis related to community-acquired pneumonia. 02/06 Patient was seen and examined. No acute events overnight. Patient continues to report cough and shortness of breath with exertion. He has been at [facility] for the past 7 days. 02/07 Patient was seen and examined. No acute events overnight. Patient reports slight improvement in his breathing. His O2 saturation is borderline low at 91% on RA. General: non toxic, no distress, appears at stated age Derm: warm, dry Head: atraumatic, normocephalic, symmetric Eyes: EOMI, no lid lag, anicteric sclera Cardiovascular: S1S2 reg, no murmur Lungs: Decreased BS bilateral, no rhonchi, no rales , no accessory muscle use Ext: no gross muscle atrophy, no edema, no contractures Neuro: no focal neuro deficits Psych: Alert, oriented, appropriate affect Acute hypoxic respiratory failure Sepsis secondary to community acquired pneumonia Alcohol abuse Based on my assessment of this patient, this patient meets a moderate complexity level of care. Patient has an acute diagnosis of acute hypoxic respiratory failure secondary to community-acquired pneumonia that poses a threat to life or bodily function. He meets sepsis criteria with fever, tachycardia, leukocytosis and positive source of infection. Continue Rocephin 2 g IV daily, azithromycin 500 mg by mouth daily. Sputum culture ordered. Legionella antigen negative. Telemetry monitoring. He is pending clinical improvement. I have reviewed the following coding consultant notes: I have reviewed the results of the following tests: I have ordered the following tests: CXR tomorrow morning. I have discussed the care of this patient with the following independent historian: I have independently interpreted the following test below: I have discussed the management of this patient with the following physician: Objective - Vital Signs Vital signs: Vital Signs Temp 100.3 F H 02/07/23 07:11 Pulse 74 02/07/23 15:28 Resp 17 02/07/23 07:11 BP 114/62 02/07/23 07:11 Pulse Ox 92 L 02/07/23 07:58 FiO2 Intake & Output 02/06/23 02/07/23 02/07/23 18:59 06:59 18:59 Intake Total 1320 1250 Output Total 1850 Balance 1320 -600 Intake: Intake, IV Titration 1050 Amount Sodium Chloride 0.9% 1, 1000 000 ml @ 125 mls/hr IV . Q8H [facility] Rx#:[id number] cefTRIAXone 2 gm In 50 Sodium Chloride 0.9% 50 ml @ 100 mls/hr IVPB Q24HR [facility] Rx#:[id number] Oral 270 1250 Output: Urine 1850 Other: Voiding Method Urinal Urinal - Labs CBC & Chem 7: 02/05/23 17:15 02/05/23 17:15 Labs: Microbiology - Last 24 Hours (Table) 02/05/23 21:37 Blood Culture - Preliminary Blood 02/05/23 21:22 Blood Culture - Preliminary Blood 02/05/23 17:15 Blood Culture - Preliminary Blood
[2023-02-07] MEDS: MIRTAZAPINE 15 MG TAB PO SCH (21:12)
[2023-02-08] MEDS: HEPARIN SODIUM,PORCINE/PF 5,000 UNIT/0.5 ML SYRINGE SQ SCH ×3 (00:22→16:19)
[2023-02-08] MEDS ORDERED: guaiFENesin SYRUP 100MG/5ML 200 MG/10 ML CUP PO PRN (00:34)
[2023-02-08] MEDS ORDERED: NICOTINE 14MG/24HR PATCH TRANSDERM STA (00:34)
[2023-02-08] MEDS: ACETAMINOPHEN TAB 325 MG TAB PO PRN (02:27)
[2023-02-08] MEDS: MELATONIN 5 MG TABLET PO PRN (02:52)
--- NOTE | 2023-02-08 07:23 | XR ---
EXAMINATION TYPE: XR chest 1V portable DATE OF EXAM: 02/08/2023 COMPARISON: 02/06/2023 HISTORY: Chest pain TECHNIQUE: Single frontal view of the chest is obtained. FINDINGS: Diffuse reticulonodular infiltrate throughout the right lung is essentially unchanged. Stable left in filtrate left mid and left lower lung zones. The cardiac silhouette size is within normal limits. The osseous structures are intact. IMPRESSION: 1. Stable features of pneumonia.
[2023-02-08] MEDS: FOLIC ACID 1 MG TAB PO SCH (07:34)
[2023-02-08] MEDS: THIAMINE 100 MG TAB PO SCH (07:34)
[2023-02-08] MEDS: MULTIVITAMINS, THERA 1 EACH TAB PO SCH (07:34)
[2023-02-08] MEDS: IPRATROPIUM-ALBUTEROL 3 ML NEB INHALATION SCH ×4 (09:00→21:28)
--- NOTE | 2023-02-08 14:07 | P.PN ---
Subjective Progress Note Date: 02/08/23 The patient is a 42-year-old male with a PMH of EtOH abuse who presents to the emergency room with complaints of shortness of breath and cough. The patient reports that his symptoms started 2-3 days ago with gradually worsening dyspnea on exertion as well as cough productive of whitish phlegm. The patient is currently at [facility] with history of alcohol abuse. Chest x-ray in the emergency room revealed bilateral opacities consistent with atypical pneumonia. Vital signs upon arrival at the emergency room were emperature 100.3F, BP 122/67, pulse 98, respiratory rate 20, and SpO2 96% on room air. Laboratory evaluation was remarkable for leukocytosis at 13.8, hemoglobin 12.5, sodium 134, lactic acid 1.1. Coronavirus, RSV, and influenza testing was negative. Patient started on Rocephin and azithromycin and admitted for sepsis related to community-acquired pneumonia. 02/06 Patient was seen and examined. No acute events overnight. Patient continues to report cough and shortness of breath with exertion. He has been at [facility] for the past 7 days. 02/07 Patient was seen and examined. No acute events overnight. Patient reports slight improvement in his breathing. His O2 saturation is borderline low at 91% on RA. 02/08 Patient was seen and examined. He reports his breathing to be fair. He desaturates to 88% with ambulation. T-max of 102.5 Fahrenheit over the past 24 hours. Sputum culture shows moderate gram-negative bacilli, few gram-positive cocci. Blood cultures preliminary negative. Chest x-ray shows persistent bilateral infiltrates consistent with atypical pneumonia. General: non toxic, no distress, appears at stated age Derm: warm, dry Head: atraumatic, normocephalic, symmetric Eyes: EOMI, no lid lag, anicteric sclera Cardiovascular: S1S2 reg, no murmur Lungs: Decreased BS bilateral, no rhonchi, no rales , no accessory muscle use Ext: no gross muscle atrophy, no edema, no contractures Neuro: no focal neuro deficits Psych: Alert, oriented, appropriate affect Acute hypoxic respiratory failure Sepsis secondary to community acquired pneumonia Alcohol abuse Based on my assessment of this patient, this patient meets a moderate complexity level of care. Patient has an acute diagnosis of acute hypoxic respiratory failure secondary to community-acquired pneumonia that poses a threat to life or bodily function. He meets sepsis criteria with fever, tachycardia, leukocytosis and positive source of infection. Continue Rocephin 2 g IV daily, azithromycin 500 mg by mouth daily. Sputum culture ordered. Legionella antigen negative. Telemetry monito ring. He is pending clinical improvement. Anticipated discharge in 1-2 days. I have reviewed the following transportation sales consultant notes: I have reviewed the results of the following tests: Sputum and blood culture as above. I have ordered the following tests: CBC, BMP ordered for tomorrow morning. I have discussed the care of this patient with the following independent historian: I have independently interpreted the following test below: Chest x-ray as above. I have discussed the management of this patient with the following physician: Objective - Vital Signs Vital signs: Vital Signs Temp 98.3 F 02/08/23 07:33 Pulse 70 02/08/23 12:09 Resp 17 02/08/23 07:33 BP 108/67 02/08/23 07:33 Pulse Ox 90 L 02/08/23 13:43 FiO2 21 02/08/23 09:00 Intake & Output 02/07/23 02/08/23 02/08/23 18:59 06:59 18:59 Intake Total 240 Output Total 400 Balance -160 Intake: Oral 240 Output: Urine 400 Other: Voiding Method Urinal Urinal # Voids 4 5 # Bowel Movements 1 - Labs CBC & Chem 7: 02/05/23 17:15 02/05/23 17:15 Labs: Microbiology - Last 24 Hours (Table) 02/07/23 17:53 Gram Stain - Preliminary Sputum 02/05/23 21:37 Blood Culture - Preliminary Blood 02/05/23 21:22 Blood Culture - Preliminary Blood 02/05/23 17:15 Blood Culture - Preliminary Blood
[2023-02-08] MEDS: NICOTINE 14MG/24HR PATCH TRANSDERM SCH (19:45)
[2023-02-08] MEDS: MIRTAZAPINE 15 MG TAB PO SCH (20:27)
[2023-02-09] MEDS: HEPARIN SODIUM,PORCINE/PF 5,000 UNIT/0.5 ML SYRINGE SQ SCH ×2 (00:03→07:37)
[2023-02-09] MEDS: MELATONIN 5 MG TABLET PO PRN (00:13)
[2023-02-09] MEDS: ACETAMINOPHEN TAB 325 MG TAB PO PRN (02:05)
[2023-02-09] MEDS: NICOTINE 14MG/24HR PATCH TRANSDERM SCH (07:37)
[2023-02-09] MEDS: FOLIC ACID 1 MG TAB PO SCH (07:37)
[2023-02-09] MEDS: THIAMINE 100 MG TAB PO SCH (07:37)
[2023-02-09] MEDS: MULTIVITAMINS, THERA 1 EACH TAB PO SCH (07:37)
[2023-02-09 08:16] VITALS: BP 110/71; RESP 18; TEMP 99.5
[2023-02-09] MEDS: IPRATROPIUM-ALBUTEROL 3 ML NEB INHALATION SCH ×2 (08:16→11:42)
[2023-02-09 11:58] VITALS: PULSE 70
--- NOTE | 2023-02-09 14:33 | P.DS ---
Providers Date of admission: 02/05/23 20:27 Expected date of discharge: 02/09/23 Attending physician: Willian Marcelino MD Primary care physician: Stated None Hospital Course: The patient is a 42-year-old male with a PMH of EtOH abuse who presents to the emergency room with complaints of shortness of breath and cough. The patient reports that his symptoms started 2-3 days ago with gradually worsening dyspnea on exertion as well as cough productive of whitish phlegm. The patient is currently at [facility] with history of alcohol abuse. Chest x-ray in the emergency room revealed bilateral opacities consistent with atypical pneumonia. Vital signs upon arrival at the emergency room were emperature 100.3F, BP 122/67, pulse 98, respiratory rate 20, and SpO2 96% on room air. Laboratory evaluation was remarkable for leukocytosis at 13.8, hemoglobin 12.5, sodium 134, lactic acid 1.1. Coronavirus, RSV, and influenza testing was negative. Patient started on Rocephin and azithromycin and admitted for sepsis related to community-acquired pneumonia. 02/06 Patient was seen and examined. No acute events overnight. Patient continues to report cough and shortness of breath with exertion. He has been at [facility] for the past 7 days. 02/07 Patient was seen and examined. No acute events overnight. Patient reports slight improvement in his breathing. His O2 saturation is borderline low at 91% on RA. Pro-calcitonin elevated at 1.28. CRP 13.4. Influenza, RSV, COVID-19 negative. Urine Legionella negative. 02/08 Patient was seen and examined. He reports his breathing to be fair. He desaturates to 88% with ambulation. T-max of 102.5 Fahrenheit over the past 24 hours. Sputum culture shows moderate gram-negative bacilli, few gram-positive cocci. Blood cultures preliminary negative. Chest x-ray shows persistent bilateral infiltrates consistent with atypical pneumonia. Patient was seen and examined on 02/09. Able to pass his home O2 eval today. He reports improvement in his breathing.Tmax 100.3F over the past 24H. He will be discharged home with 2 more days of Levaquin to complete a total of 7 days antibiotics. Patient is requesting Antabuse on discharge. Pertinent studies include chest x-ray. General: non toxic, no distress, appears at stated age Derm: warm, dry Head: atraumatic, normocephalic, symmetric Eyes: EOMI, no lid lag, anicteric sclera Cardiovascular: S1S2 reg, no murmur Lungs: Decreased BS bilateral, no rhonchi, no rales , no accessory muscle use Ext: no gross muscle atrophy, no edema, no contractures Neuro: no focal neuro deficits Psych: Alert, oriented, appropriate affect Discharge diagnosis: Acute hypoxic respiratory failure Sepsis secondary to community acquired pneumonia Alcohol abuse This complex discharge took 35 minutes to complete Patient Condition at Discharge: Undetermined Plan - Discharge Summary Discharge Rx Participant: Yes New Discharge Prescriptions: New Disulfiram [Antabuse] 250 mg PO DAILY #30 tablet Levofloxacin [Levaquin] 750 mg PO DAILY 2 Days #2 tab Albuterol Inhaler [Ventolin Hfa Inhaler] 1 puff INHALATION Q6H PRN #1 each PRN Reason: Shortness Of Breath Or Wheezing Continue Mag Hydrox/Aluminum Hyd/Simeth [Mylanta Maximum Strength Liq] 30 ml PO Q4H PRN PRN Reason: Indigestion Hyoscyamine Sulfate [Levsin] 0.125 mg PO QID PRN PRN Reason: ibs Albuterol Nebulized [Ventolin Nebulized] 2.5 mg INHALATION RT-Q6H PRN PRN Reason: Shortness Of Breath Multivitamins, Thera [Multivitamin (formulary)] 1 tab PO DAILY Folic Acid 1 mg PO DAILY #30 tab Thiamine [Vitamin B-1] 100 mg PO DAILY #30 tab Mirtazapine [Remeron] 15 mg PO HS Ibuprofen [Motrin] 600 mg PO Q6H PRN PRN Reason: Pain Acetaminophen [Tylenol] 650 mg PO Q4H PRN PRN Reason: Fever And/ Or Pain Calcium/Magnesium/Zinc With Vitamin D 334/134/5mg 1 tab PO TID PRN PRN Reason: Muscle Spasm Discontinued ondansetron HCL [Zofran] 8 mg PO Q6H PRN PRN Reason: Nausea And Vomiting chlordiazePOXIDE HCl [Librium] 10 mg PO TID Loperamide HCl [Imodium A-D] 2 - 4 mg PO QID PRN PRN Reason: Diarrhea Chlorpheniramine Maleate [Chlor-Trimeton] 4 mg PO Q4H PRN PRN Reason: Allergy Symptoms Discharge Medication List Folic Acid 1 mg PO DAILY #30 tab 01/26/23 [Rx] Thiamine [Vitamin B-1] 100 mg PO DAILY #30 tab 01/26/23 [Rx] Acetaminophen [Tylenol] 650 mg PO Q4H PRN 02/05/23 [History] Albuterol Nebulized [Ventolin Nebulized] 2.5 mg INHALATION RT-Q6H PRN 02/05/23 [History] Calcium/Magnesium/Zinc With Vitamin D 334/134/5mg 1 tab PO TID PRN 02/05/23 [History] Hyoscyamine Sulfate [Levsin] 0.125 mg PO QID PRN 02/05/23 [History] Ibuprofen [Motrin] 600 mg PO Q6H PRN 02/05/23 [History] Mag Hydrox/Aluminum Hyd/Simeth [Mylanta Maximum Strength Liq] 30 ml PO Q4H PRN 02/05/23 [History] Mirtazapine [Remeron] 15 mg PO HS 02/05/23 [History] Multivitamins, Thera [Multivitamin (formulary)] 1 tab PO DAILY 02/05/23 [History] Albuterol Inhaler [Ventolin Hfa Inhaler] 1 puff INHALATION Q6H PRN #1 each 02/09/23 [Rx] Disulfiram [Antabuse] 250 mg PO DAILY #30 tablet 02/09/23 [Rx] Levofloxacin [Levaquin] 750 mg PO DAILY 2 Days #2 tab 02/09/23 [Rx] Follow up Appointment(s)/Referral(s): None,Stated [Primary Care Provider] - 1-2 days Patient Instructions/Handouts: Abuse of Alcohol (DC) Activity/Diet/Wound Care/Special Instructions: AA Meetings in [facility]: 1. Friday7:00 pm [facility] [address] [place] 2. Friday7:30 pm [place] [facility] [address] [place] 3. Friday7:30 pm [place] [facility] [address] [place] 4. 7:00 pm [facility] [address] [place] 5. Friday7:30 pm [place] [facility] [address] [place] 6. Friday7:00 pm [facility] [address] Discharge Disposition: HOME SELF-CARE
== END 2023-02-09 13:37 | disposition home or self-care (01) | DRG 720 ==
LOC: EC 14:56 → 4SSUR 20:27
PROVIDERS: ADMIT Internal Medicine; ATTEND Internal Medicine
DX: A41.89 Other specified sepsis (principal); J96.01 Acute respiratory failure with hypoxia; J18.9 Pneumonia, unspecified organism; F17.210 Nicotine dependence, cigarettes, uncomplicated; F10.10 Alcohol abuse, uncomplicated; B96.89 Other specified bacterial agents as the cause of diseases classified elsewhere; Z20.822 Contact with and (suspected) exposure to COVID-19; Z28.310 Unvaccinated for COVID-19; Z79.899 Other long term (current) drug therapy; Z82.5 Family history of asthma and other chronic lower respiratory diseases
CPT/HCPCS: 36415; 71045; 71046; 80053; 83605; 84145; 85025; 86140; 87040; 87070; 87205; 87449; 87636; 94640; 94760; 96360; 99285

== ENCOUNTER 2024-07-09 23:47 | Emergency (ER) | payer OTHER ==
[2024-07-09 23:59] VITALS: PULSE 100; RESP 18; TEMP 98.3
--- NOTE | 2024-07-10 00:39 | ED ---
Wound/Laceration HPI - General Chief Complaint: Wound/Laceration Stated Complaint: Possible infection Time Seen by Provider: 07/10/24 00:38 Source: patient, EMS, RN notes reviewed Mode of arrival: EMS Limitations: no limitations - History of Present Illness Initial Comments: 44-year-old male presented to ER with a chief complaint of left foot pain. Heean ent is coming via EMS from [facility]. He states he entered [facility] approximately 4 days ago for alcohol abuse. He states when leaving [facility] today they told him he could not come back. Patient reports for the past couple of days he has been endorsing pain to his left second and third MTP joint. He is not concerned of an infection. He is not a diabetic. Patient states due to the walking at [facility] he is unable to perform activities they are due to this pain. He denies any fevers or chills. No known injuries or traumas. Patient has not done anything for symptoms at this time. No other complaints. - Related Data Home Medications Medication Instructions Recorded Confirmed Acetaminophen [Tylenol] 650 mg PO Q4H PRN 02/05/23 02/05/23 Albuterol Nebulized [Ventolin 2.5 mg INHALATION RT-Q6H PRN 02/05/23 02/05/23 Nebulized] Calcium/Magnesium/Zinc With 1 tab PO TID PRN 02/05/23 02/05/23 Vitamin D 334/134/5mg Hyoscyamine Sulfate [Levsin] 0.125 mg PO QID PRN 02/05/23 02/05/23 Ibuprofen [Motrin] 600 mg PO Q6H PRN 02/05/23 02/05/23 Mag Hydrox/Aluminum Hyd/Simeth 30 ml PO Q4H PRN 02/05/23 02/05/23 [Mylanta Maximum Strength Liq] Mirtazapine [Remeron] 15 mg PO HS 02/05/23 02/05/23 Multivitamins, Thera [Multivitamin 1 tab PO DAILY 02/05/23 02/05/23 (formulary)] Previous Rx's Medication Instructions Recorded Folic Acid 1 mg PO DAILY #30 tab 01/26/23 Thiamine [Vitamin B-1] 100 mg PO DAILY #30 tab 01/26/23 Albuterol Inhaler [Ventolin Hfa 1 puff INHALATION Q6H PRN #1 each 02/09/23 Inhaler] Disulfiram [Antabuse] 250 mg PO DAILY #30 tablet 02/09/23 Levofloxacin [Levaquin] 750 mg PO DAILY 2 Days #2 tab 02/09/23 Allergies Allergy/AdvReac Type Severity Reaction Status Date / Time No Known Allergies Allergy Verified 02/05/23 17:21 Review of Systems ROS Statement: Those systems with pertinent positive or pertinent negative responses have been documented in the HPI. ROS Other: All systems not noted in ROS Statement are negative. Past Medical History Past Medical History: Seizure Disorder Additional Past Medical History / Comment(s): seizures r/t detox. History of Any Multi-Drug Resistant Organisms: None Reported Past Surgical History: No Surgical Hx Reported Past Psychological History: No Psychological Hx Reported Smoking Status: Current every day smoker Past Alcohol Use History: Heavy Past Drug Use History: None Reported - Past Family History Father Family Medical History: COPD General Exam Limitations: no limitations General appearance: alert, in no apparent distress, other (unkept) Respiratory exam: Present: normal lung sounds bilaterally. Absent: respiratory distress, wheezes, rales, rhonchi, stridor Cardiovascular Exam: Present: regular rate, normal rhythm, normal heart sounds. Absent: systolic murmur, diastolic murmur, rubs, gallop, clicks Extremities exam: Present: normal inspection, full ROM, normal capillary refill. Absent: tenderness, pedal edema, joint swelling, calf tenderness Neurological exam: Present: alert, oriented X3, CN II-XII intact Skin exam: Present: warm, dry, normal color, rash (skin breakdown to plantar aspect of left foot and interdigital spaces.), other Course Vital Signs 07/09/24 07/10/24 23:55 03:03 Temperature 98.3 F Pulse Rate 100 100 Respiratory 18 18 Rate Blood Pressure 110/70 110/76 O2 Sat by Pulse 99 99 Oximetry Medical Decision Making - Medical Decision Making Was pt. sent in by a medical professional or institution (, PA, EDITOR SCHOOL PH[employer]GRAPH, urgent care, hospital, or long term...) When possible be specific @ -Patient sent by [facility] for evaluation of foot pain. Did you speak to anyone other than the patient for history (EMS, parent, family, police, friend...)? What history was obtained from this source @ -No Did you review nursing and triage notes (agree or disagree)? Why? @ -I reviewed and agree with nursing and triage notes Were old charts reviewed (outside hosp., previous admission, EMS record, old EKG, old radiological studies, urgent care reports/EKG's, long term records)? Report findings @ -No old charts were reviewed Differential Diagnosis (chest pain, altered mental status, abdominal pain women, abdominal pain men, vaginal bleeding, weakness, fever, dyspnea, syncope, hea dache, dizziness, GI bleed, back pain, seizure, CVA, palpatations, mental health, musculoskeletal)? @ -Differential Musculoskeletal: Muscular strain, contusion, ligament sprain, fracture, arthritis, septic arthritis, bursitis, cellulitis, muscle spasm, nerve compression, DVT, arterial occlusion, herpes zoster, electrolyte abnormality, tumor.... This is not meant to be in all inclusive list EKG interpreted by me (3pts min.). @ -None done X-rays interpreted by me (1pt min.). @ -Left foot x-ray interpreted me negative for acute osseous process. CT interpreted by me (1pt min.). @ -None done U/S interpreted by me (1pt. min.). @ -None done What testing was considered but not performed or refused? (CT, X-rays, U/S, labs)? Why? @ -None What meds were considered but not given or refused? Why? @ -None Did you discuss the management of the patient with other professionals (professionals i.e. , PA, [employer]OR [employer]CHO[employer]GRAPH, lab, RT, psych nurse, healthcare social worker, director appointment, teacher, access control officer, correctional casework specialist)? Give summary @ -No Was smoking cessation discussed for >3mins.? @ -No Was critical care preformed (if so, how long)? @ -No Were there social determinants of health that impacted care today? How? (H omelessness, low income, unemployed, alcoholism, drug addiction, transportation, low edu. Level, literacy, decrease access to med. care, long term, rehab)? @ -Alcoholism. Patient sent here by [facility] for evaluation of foot pain but states he is not allowed to go back to Was there de-escalation of care discussed even if they declined (Discuss DNR or withdrawal of care, Hospice)? DNR status @ -No What co-morbidities impacted this encounter? (DM, HTN, Smoking, COPD, CAD, Cancer, CVA, ARF, Chemo, Hep., AIDS, mental health diagnosis, sleep apnea, morbid obesity)? @ -Alcoholism Was patient admitted / discharged? Hospital course, mention meds given and route, prescriptions, significant lab abnormalities, going to OR and other pertinent info. @ -Discharged. 44-year-old male presented to the ER with a chief complaint of left foot pain. History and physical exam completed. Vital stable. Left lower extremity neurovascular intact. Tenderness to second and third MTP joint. Patient has full range of motion. There is an overlying rash concerning of tinea pedis. Patient will be started on clotrimazole. Hygiene discussed with patient. Strict return parameters discussed. Patient discharged in stable condition with follow-up to PCP. Patient verbally expressed understanding and agreement with care plan. Case discussed with ED attending, Dr. Durham. Undiagnosed new problem with uncertain prognosis? @ -No Drug Therapy requiring intensive monitoring for toxicity (Heparin, Nitro, Insulin, Cardizem)? @ -No Were any procedures done? @ -No Diagnosis/symptom? @ -Tinea pedis Acute, or Chronic, or Acute on Chronic? @ -Acute Uncomplicated (without systemic symptoms) or Complicated (systemic symptoms)? @ -Uncomplicated Side effects of treatment? @ -No Exacerbation, Progression, or Severe Exacerbation? @ -No Poses a threat to life or bodily function? How? (Chest pain, [place], [place], pneumonia, PE, COPD, DKA, ARF, appy, cholecystitis, CVA, Diverticulitis, Homicidal, Suicidal, threat to staff... and all critical care pts) @ -No - Radiology Data Radiology results: report reviewed, image reviewed Disposition Clinical Impression: Tinea pedis Disposition: HOME SELF-CARE Condition: Stable Instructions (If sedation given, give patient instructions): Athlete's Foot (ED) Additional Instructions: Follow-up with PCP. Return to the ER for any new or worsening symptoms. Is patient prescribed a controlled substance at d/c from ED?: No Referrals: Nonstaff,Physician [Primary Care Provider] - 1-2 days Forms: Area PCPs Time of Disposition: 01:15
[2024-07-10] MEDS: IBUPROFEN 600 MG TAB PO STA (00:49)
--- NOTE | 2024-07-10 01:52 | XR ---
EXAMINATION TYPE: XR foot limited LT DATE OF EXAM: 07/10/2024 CLINICAL HISTORY: Distal second and third MTP joint pain TECHNIQUE: Frontal and lateral images of the left foot are obtained. COMPARISON: None FINDINGS: There is no acute displaced fracture evident in the left foot. No suspicious bony destruc tion. The joint spaces in the left foot appear within normal limits. The overlying soft tissue appea rs unremarkable. IMPRESSION: Unremarkable 2 views left foot. [facility], , 07/10/2024 1:49 AM
[2024-07-10 03:04] VITALS: BP 110/76
[2024-07-10] MEDS ORDERED: CLOTRIMAZOLE 1% CREAM 30 GM TUBE TOPICAL SCH (09:00)
== END 2024-07-10 03:11 | disposition home or self-care (01) ==
LOC: EC 23:47
DX: B35.3 Tinea pedis (principal); F17.200 Nicotine dependence, unspecified, uncomplicated; F10.20 Alcohol dependence, uncomplicated
CPT/HCPCS: 99283

== ENCOUNTER 2024-07-10 14:22 | Emergency (ER) | payer OTHER ==
[2024-07-10 14:32] VITALS: PULSE 80; RESP 16; TEMP 98
[2024-07-10] MEDS: SODIUM CHLORIDE 0.9% 1,000 ML IV STA (14:42)
[2024-07-10 14:50] LABS: Basophils # (A) 0.1 k/uL (0-0.2); Basophils % (A) 0 %; Eosinophils # (A) 0.2 k/uL (0-0.7); Eosinophils % (A) 1 %; HCT 42.7 % (39.0-53.0); HGB 14.1 gm/dL (13.0-17.5); Lymphocytes # (A) 2.7 k/uL (1.0-4.8); Lymphocytes % (A) 18 %; MCH 31.6 pg (25.0-35.0); MCV 95.7 fL (80.0-100.0); Mean Platelet Volume 7.4; Monocytes % (A) 6 %; Neutrophils # (A) 11.4 k/uL (1.3-7.7); Neutrophils % (A) 73 %; Platelet Count 242 k/uL (150-450); RBC 4.46 m/uL (4.30-5.90); RDW 11.9 % (11.5-15.5); WBC 15.5 k/uL (3.8-10.6)
[2024-07-10 15:09] LABS: ALT 17 U/L (4-49); AST 30 U/L (17-59); African American GFR (CKD) >90 (>60 ml/min/1.73 sqM); Albumin 4.7 g/dL (3.5-5.0); Alcohol 45 mg/dL; Alkaline Phosphatase 69 U/L (38-126); Anion Gap 10 mmol/L; Blood Urea Nitrogen 17 mg/dL (9-20); Calcium 9.3 mg/dL (8.4-10.2); Carbon Dioxide 23 mmol/L (22-30); Chloride 103 mmol/L (98-107); Glucose 82 mg/dL (74-99); Lipase 195 U/L (23-300); Magnesium 1.9 mg/dL (1.6-2.3); Non-African American GFR(CKD) >90 (>60 ml/min/1.73 sqM); Potassium 4.1 mmol/L (3.5-5.1); Sodium 136 mmol/L (137-145); Total Bilirubin 0.7 mg/dL (0.2-1.3); Total Protein 7.5 g/dL (6.3-8.2)
--- NOTE | 2024-07-10 15:10 | ED ---
Alcohol HPI - General Chief Complaint: Alcohol Stated Complaint: ETOH Time Seen by Provider: 07/10/24 14:22 Source: patient, EMS, RN notes reviewed Mode of arrival: EMS Limitations: no limitations - History of Present Illness Initial Comments: 44-year-old male presents emergency department via EMS chief complaint of alcohol issues. Patient states he checked out of [facility] today and probably went to [facility] for some help. Patient states he has had withdrawals in the past but has been in [facility] for over a week for treatment. Patient s tates he feels like he needs more resources and more help than he was getting there. He states that he drinks greater than 10 beers a day sometimes some liquor in between. Patient denies any current medications denies chest pain shortness of breath no focal weakness no hallucinations - Related Data Home Medications Medication Instructions Recorded Confirmed Acetaminophen [Tylenol] 650 mg PO Q4H PRN 02/05/23 02/05/23 Albuterol Nebulized [Ventolin 2.5 mg INHALATION RT-Q6H PRN 02/05/23 02/05/23 Nebulized] Calcium/Magnesium/Zinc With 1 tab PO TID PRN 02/05/23 02/05/23 Vitamin D 334/134/5mg Hyoscyamine Sulfate [Levsin] 0.125 mg PO QID PRN 02/05/23 02/05/23 Ibuprofen [Motrin] 600 mg PO Q6H PRN 02/05/23 02/05/23 Mag Hydrox/Aluminum Hyd/Simeth 30 ml PO Q4H PRN 02/05/23 02/05/23 [Mylanta Maximum Strength Liq] Mirtazapine [Remeron] 15 mg PO HS 02/05/23 02/05/23 Multivitamins, Thera [Multivitamin 1 tab PO DAILY 02/05/23 02/05/23 (formulary)] Previous Rx's Medication Instructions Recorded Folic Acid 1 mg PO DAILY #30 tab 01/26/23 Thiamine [Vitamin B-1] 100 mg PO DAILY #30 tab 01/26/23 Albuterol Inhaler [Ventolin Hfa 1 puff INHALATION Q6H PRN #1 each 02/09/23 Inhaler] Disulfiram [Antabuse] 250 mg PO DAILY #30 tablet 02/09/23 Levofloxacin [Levaquin] 750 mg PO DAILY 2 Days #2 tab 02/09/23 Allergies Allergy/AdvReac Type Severity Reaction Status Date / Time No Known Allergies Allergy Verified 02/05/23 17:21 Review of Systems ROS Statement: Those systems with pertinent positive or pertinent negative responses have been documented in the HPI. ROS Other: All systems not noted in ROS Statement are negative. Past Medical History Past Medical History: Seizure Disorder Additional Past Medical History / Comment(s): seizures r/t detox. History of Any Multi-Drug Resistant Organisms: None Reported Past Surgical History: No Surgical Hx Reported Past Psychological History: No Psychological Hx Reported Smoking Status: Current every day smoker Past Alcohol Use History: Heavy Past Drug Use History: None Reported - Past Family History Father Family Medical History: COPD General Exam Limitations: no limitations General appearance: alert, in no apparent distress Head exam: Present: atraumatic, normocephalic, normal inspection Eye exam: Present: normal appearance, PERRL, EOMI. Absent: scleral icterus, conjunctival injection, periorbital swelling ENT exam: Present: normal exam, normal oropharynx, mucous membranes moist Neck exam: Present: normal inspection, full ROM. Absent: tenderness, meningismus, lymphadenopathy Respiratory exam: Present: normal lung sounds bilaterally. Absent: respiratory distress, wheezes, rales, rhonchi, stridor Cardiovascular Exam: Present: regular rate, normal rhythm, normal heart sounds. Absent: systolic murmur, diastolic murmur, rubs, gallop, clicks GI/Abdominal exam: Present: soft, normal bowel sounds. Absent: distended, tenderness, guarding, rebound, rigid Neurological exam: Present: alert, oriented X3, CN II-XII intact, reflexes normal. Absent: motor sensory deficit Course Vital Signs 07/10/24 07/10/24 14:24 16:15 Temperature 98.0 F Pulse Rate 80 80 Respiratory 16 16 Rate Blood Pressure 110/73 106/85 O2 Sat by Pulse 98 99 Oximetry Medical Decision Making - Medical Decision Making Was pt. sent in by a medical professional or institution (, PA, BATTERY REPAIRER, urgent care, hospital, or custodial...) When possible be specific @ -No Did you speak to anyone other than the patient for history (EMS, parent, family, police, friend...)? What history was obtained from this source @ -No Did you review nursing and triage notes (agree or disagree)? Why? @ -I reviewed and agree with nursing and triage notes Were old charts reviewed (outside hosp., previous admission, EMS record, old EKG, old radiological studies, urgent care reports/EKG's, custodial records)? Report findings @ -No old charts were reviewed Differential Diagnosis (chest pain, altered mental status, abdominal pain women, abdominal pain men, vaginal bleeding, weakness, fever, dyspnea, syncope, heada marisol, dizziness, GI bleed, back pain, seizure, CVA, palpatations, mental health, musculoskeletal)? @ -Alcohol intoxication, alcohol abuse alcohol withdrawal EKG interpreted by me (3pts min.). @ -None X-rays interpreted by me (1pt min.). @ -None done CT interpreted by me (1pt min.). @ -None done U/S interpreted by me (1pt. min.). @ -None done What testing was considered but not performed or refused? (CT, X-rays, U/S, labs)? Why? @ -None What meds were considered but not given or refused? Why? @ -None Did you discuss the management of the patient with other professionals (professionals i.e. , PA, BATTERY REPAIRER, lab, RT, psych nurse, clinical social work therapist, practice specialist, teacher, motorcycle police officer, disability case manager)? Give summary @ -No Was smoking cessation discussed for >3mins.? @ -No Was critical care preformed (if so, how long)? @ -No Were there social determinants of health that impacted care today? How? (Homelessness, low income, unemployed, alcoholism, drug addiction, transportation, low edu. Level, literacy, decrease access to med. care, nursing home, rehab)? @ -No Was there de-escalation of care discussed even if they declined (Discuss DNR or withdrawal of care, Hospice)? DNR status @ -No What co-morbidities impacted this encounter? (DM, HTN, Smoking, COPD, CAD, Cancer, CVA, ARF, Chemo, Hep., AIDS, mental health diagnosis, sleep apnea, morbid obesity)? @ -None Was patient admitted / discharged? Hospital course, mention meds given and route, prescriptions, significant lab abnormalities, going to OR and other pertinent info. @ -Discharged patient presented EMS for alcohol use he has a history of use just spent over a week at [facility] and discharged himself today he will be given other resources as he requested. Patient does not have any current withdrawal symptoms Undiagnosed new problem with uncertain prognosis? @ -No Drug Therapy requiring intensive monitoring for toxicity (Heparin, Nitro, Insul in, Cardizem)? @ -No Were any procedures done? @ -No Diagnosis/symptom? @ -Alcohol abuse Acute, or Chronic, or Acute on Chronic? @ -Acute Uncomplicated (without systemic symptoms) or Complicated (systemic symptoms)? @ -Uncomplicated Side effects of treatment? @ -No Exacerbation, Progression, or Severe Exacerbation? @ -No Poses a threat to life or bodily function? How? (Chest pain, [place], [place], pneumonia, PE, COPD, DKA, ARF, appy, cholecystitis, CVA, Diverticulitis, Homicidal, Suicidal, threat to staff... and all critical care pts) @ -No - Lab Data Result diagrams: 07/10/24 14:39 07/10/24 14:39 Lab Results 07/10/24 07/10/24 07/10/24 Range/Units 14:39 14:39 14:39 WBC 15.5 H (3.8-10.6) k/uL RBC 4.46 (4.30-5.90) m/uL Hgb 14.1 (13.0-17.5) gm/dL Hct 42.7 (39.0-53.0) % MCV 95.7 (80.0-100.0) fL MCH 31.6 (25.0-35.0) pg MCHC 33.0 (31.0-37.0) g/dL RDW 11.9 (11.5-15.5) % Plt Count 242 (150-450) k/uL MPV 7.4 Neutrophils % 73 % Lymphocytes % 18 % Monocytes % 6 % Eosinophils % 1 % Basophils % 0 % Neutrophils # 11.4 H (1.3-7.7) k/uL Lymphocytes # 2.7 (1.0-4.8) k/uL Monocytes # 1.0 (0-1.0) k/uL Eosinophils # 0.2 (0-0.7) k/uL Basophils # 0.1 (0-0.2) k/uL Sodium 136 L (137-145) mmol/L Potassium 4.1 (3.5-5.1) mmol/L Chloride 103 (98-107) mmol/L Carbon Dioxide 23 (22-30) mmol/L Anion Gap 10 mmol/L BUN 17 (9-20) mg/dL Creatinine 0.58 L (0.66-1.25) mg/dL Est GFR (CKD-EPI)AfAm >90 (>60 ml/min/1.73 sqM) Est GFR (CKD-EPI)NonAf >90 (>60 ml/min/1.73 sqM) Glucose 82 (74-99) mg/dL Plasma Lactic Acid Sb 2.5 H* (0.7-2.0) mmol/L Calcium 9.3 (8.4-10.2) mg/dL Magnesium 1.9 (1.6-2.3) mg/dL Total Bilirubin 0.7 (0.2-1.3) mg/dL AST 30 (17-59) U/L ALT 17 (4-49) U/L Alkaline Phosphatase 69 (38-126) U/L Total Protein 7.5 (6.3-8.2) g/dL Albumin 4.7 (3.5-5.0) g/dL Lipase 195 (23-300) U/L Serum Alcohol 45 mg/dL Disposition Clinical Impression: Alcohol abuse Disposition: HOME SELF-CARE Condition: Stable Instructions (If sedation given, give patient instructions): Alcohol Withdrawal (ED) Additional Instructions: Please return to the Emergency Department if symptoms worsen or any other concerns. Is patient prescribed a controlled substance at d/c from ED?: No Referrals: None,Stated [Primary Care Provider] - 1-2 days Time of Disposition: 16:15
[2024-07-10 16:17] VITALS: BP 106/85
== END 2024-07-10 16:33 | disposition home or self-care (01) ==
LOC: EC 14:22
DX: F10.10 Alcohol abuse, uncomplicated (principal); F17.200 Nicotine dependence, unspecified, uncomplicated; Y90.2 Blood alcohol level of 40-59 mg/100 ml
CPT/HCPCS: 36415; 80053; 83605; 83690; 83735; 85025; 99284; 96360; 96361; G0480; 80320

== ENCOUNTER 2025-01-20 22:25 | Emergency (ER) | payer OTHER ==
[2025-01-20 22:40] VITALS: RESP 18
--- NOTE | 2025-01-20 23:41 | ED ---
Recheck HPI - General Chief Complaint: Recheck/Abnormal Lab/Rx Stated Complaint: Med review Time Seen by Provider: 01/20/25 22:38 Source: patient, RN notes reviewed Mode of arrival: ambulatory Limitations: no limitations - History of Present Illness Initial Comments: 44 male presenting to the emergency department for medication refill. Patient states that he was evaluated at [facility] a few weeks ago where he was transferred to [facility] for concerns of alcohol abuse and impending withdrawal. Patient states that he needs a refill of his Librium as he is concerned that he is going to have a seizure. States that his last alcohol consumption was 2+ weeks ago. Currently states that he is feeling well however is overwhelmed and is requesting resources. - Related Data Home Medications Medication Instructions Recorded Confirmed Acetaminophen [Tylenol] 650 mg PO Q4H PRN 02/05/23 02/05/23 Albuterol Nebulized [Ventolin 2.5 mg INHALATION RT-Q6H PRN 02/05/23 02/05/23 Nebulized] Calcium/Magnesium/Zinc With 1 tab PO TID PRN 02/05/23 02/05/23 Vitamin D 334/134/5mg Hyoscyamine Sulfate [Levsin] 0.125 mg PO QID PRN 02/05/23 02/05/23 Ibuprofen [Motrin] 600 mg PO Q6H PRN 02/05/23 02/05/23 Mag Hydrox/Aluminum Hyd/Simeth 30 ml PO Q4H PRN 02/05/23 02/05/23 [Mylanta Maximum Strength Liq] Mirtazapine [Remeron] 15 mg PO HS 02/05/23 02/05/23 Multivitamins, Thera [Multivitamin 1 tab PO DAILY 02/05/23 02/05/23 (formulary)] Previous Rx's Medication Instructions Recorded Folic Acid 1 mg PO DAILY #30 tab 01/26/23 Thiamine [Vitamin B-1] 100 mg PO DAILY #30 tab 01/26/23 Albuterol Inhaler [Ventolin Hfa 1 puff INHALATION Q6H PRN #1 each 02/09/23 Inhaler] Disulfiram [Antabuse] 250 mg PO DAILY #30 tablet 02/09/23 Levofloxacin [Levaquin] 750 mg PO DAILY 2 Days #2 tab 06/25/23 Allergies Allergy/AdvReac Type Severity Reaction Status Date / Time No Known Allergies Allergy Verified 01/20/25 22:36 Review of Systems ROS Statement: Those systems with pertinent positive or pertinent negative responses have been documented in the HPI. ROS Other: All systems not noted in ROS Statement are negative. Past Medical History Past Medical History: Seizure Disorder Additional Past Medical History / Comment(s): seizures r/t detox. History of Any Multi-Drug Resistant Organisms: None Reported Past Surgical History: No Surgical Hx Reported Past Psychological History: No Psychological Hx Reported Smoking Status: Current every day smoker Past Alcohol Use History: Heavy Past Drug Use History: None Reported - Past Family History Father Family Medical History: COPD General Exam Limitations: no limitations General appearance: alert, in no apparent distress ENT exam: Present: normal exam, mucous membranes moist Neck exam: Present: normal inspection. Absent: tenderness, meningismus, lymphadenopathy Respiratory exam: Present: normal lung sounds bilaterally. Absent: respiratory distress, wheezes, rales, rhonchi, stridor Cardiovascular Exam: Present: regular rate, normal rhythm, normal heart sounds. Absent: systolic murmur, diastolic murmur, rubs, gallop, clicks GI/Abdominal exam: Present: soft, normal bowel sounds. Absent: distended, tenderness, guarding, rebound, rigid Extremities exam: Present: normal inspection, full ROM, normal capillary refill. Absent: tenderness, pedal edema, joint swelling, calf tenderness Skin exam: Present: warm, dry, intact, normal color. Absent: rash Course Vital Signs 01/20/25 01/21/25 22:36 00:08 Temperature 98.3 F 98.1 F Pulse Rate 80 71 Respiratory 18 18 Rate Blood Pressure 108/61 109/79 O2 Sat by Pulse 96 97 Oximetry Medical Decision Making - Medical Decision Making Was pt. sent in by a medical professional or institution (, PA, MANAGER BILINGUAL, urgent care, hospital, or [facility]...) When possible be specific @ -No Did you speak to anyone other than the patient for history (EMS, parent, family, police, friend...)? What history was obtained from this source @ -No Did you review nursing and triage notes (agree or disagree)? Why? @ -I reviewed and agree with nursing and triage notes Were old charts reviewed (outside hosp., previous admission, EMS record, old EKG, old radiological studies, urgent care reports/EKG's, [facility] records)? Report findings @ -No old charts were reviewed Differential Diagnosis (chest pain, altered mental status, abdominal pain women, abdominal pain men, vaginal bleeding, weakness, fever, dyspnea, syncope, headache, dizziness, GI bleed, back pain, seizure, CVA, palpatations, mental health, musculoskeletal)? @ -Encounter for medication refill EKG interpreted by me (3pts min.). @ -None X-rays interpreted by me (1pt min.). @ -None done CT interpreted by me (1pt min.). @ -None done U/S interpreted by me (1pt. min.). @ -None done What testing was considered but not performed or refused? (CT, X-rays, U/S, labs)? Why? @ -None What meds were considered but not given or refused? Why? @ -None Did you discuss the management of the patient with other professionals (professionals i.e. , PA, MANAGER BILINGUAL, lab, RT, psych nurse, social human services assistants, real estate lawyer, teacher, special skills officer, high risk case manager)? Give summary @ -No Was smoking cessation discussed for >3mins.? @ -No Was critical care preformed (if so, how long)? @ -No Were there social determinants of health that impacted care today? How? (Homelessness, low income, unemployed, alcoholism, drug addiction, transportation, low edu. Level, literacy, decrease access to med. care, [facility], rehab)? @ -No Was there de-escalation of care discussed even if they declined (Discuss DNR or withdrawal of care, Hospice)? DNR status @ -No What co-morbidities impacted this encounter? (DM, HTN, Smoking, COPD, CAD, Cancer, CVA, ARF, Chemo, Hep., AIDS, mental health diagnosis, sleep apnea, morbid obesity)? @ -None Was patient admitted / discharged? Hospital course, mention meds given and route, prescriptions, significant lab abnormalities, going to OR and other pertinent info. @ -Discharge. 44 male presenting for encounter for medication refill. Patient is requesting Librium refill however patient is not consumed alcohol in 2+ weeks and therefore is not at risk for alcohol withdrawal seizure therefore prescription does not prescribe. Undiagnosed new problem with uncertain prognosis? @ -No Drug Therapy requiring intensive monitoring for toxicity (Heparin, Nitro, Insulin, Cardizem)? @ -No Were any procedures done? @ -No Diagnosis/symptom? @ -Encounter for medication refill Acute, or Chronic, or Acute on Chronic? @ -Acute Uncomplicated (without systemic symptoms) or Complicated (systemic symptoms)? @ -uncomplicated Side effects of treatment? @ -No Exacerbation, Progression, or Severe Exacerbation? @ -No Poses a threat to life or bodily function? How? (Chest pain, [place], [place], pneumonia, PE, COPD, DKA, ARF, appy, cholecystitis, CVA, Diverticulitis, Homicidal, Suicidal, threat to staff... and all critical care pts) @ -No Disposition Clinical Impression: Encounter for medication refill Disposition: HOME SELF-CARE Condition: Stable Additional Instructions: Please return to the Emergency Department if symptoms worsen or any other concerns. Is patient prescribed a controlled substance at d/c from ED?: No Referrals: None,Stated [Primary Care Provider] - 1-2 days Forms: In Substance Abuse Facilities, Community Resources Time of Disposition: 23:41
[2025-01-21 00:10] VITALS: BP 109/79; PULSE 71; TEMP 98.1
== END 2025-01-21 00:09 | disposition home or self-care (01) ==
LOC: EC 22:25
DX: Z76.0 Encounter for issue of repeat prescription (principal); F17.200 Nicotine dependence, unspecified, uncomplicated
CPT/HCPCS: 99283